=== PATIENT | female | born 1960 | race Two or more races ===

== ENCOUNTER 2020-10-05 07:51 | Outpatient (REF) | payer OTHER, SELFPAY ==
--- NOTE | 2020-10-05 | US_ITS ---
EXAMINATION: US ABDOMEN COMPLETE CLINICAL INFORMATION: Elevated liver enzymes. COMPARISON: None TECHNIQUE: Real-time imaging of the abdominal viscera. FINDINGS: PANCREAS: Normal. ABDOMINAL AORTA: The proximal, mid, and distal segments are normal in caliber. INFERIOR VENA CAVA: Visualized portions are normal. LIVER: There is diffuse attenuation of liver suggestive of focal fatty deposition with areas of focal fatty sparing adjacent to the gallbladder. No focal hepatic lesion. There is no intrahepatic biliary duct dilatation seen. GALLBLADDER: The gallbladder is physiologically distended. Multiple mobile gallstones are present with positive ABHIJEET sign. No evidence of gallbladder wall thickening or pericholecystic fluid. COMMON BILE DUCT: Normal in caliber measuring 0.3 cm in diameter. RIGHT KIDNEY: Normal. No hydronephrosis. No renal calculi or focal parenchymal lesions. The kidney measures 10.3 cm in maximum dimension. LEFT KIDNEY: Normal. No hydronephrosis. No renal calculi or focal parenchymal lesions. The kidney measures 11.0 cm in maximum dimension. SPLEEN: Normal. The spleen measures 9.0 cm in maximum dimension. FREE FLUID: None. US/US abdomen complete IMPRESSION: Cholelithiasis with positive ABHIJEET sign. No wall thickening. Diffuse hepatic steatosis with areas of focal fatty sparing. Rest of the abdominal ultrasound sound is unremarkable
== END 2020-10-05 07:52 | disposition home or self-care (01) ==
LOC: HO.US 07:51
PROVIDERS: Visit Provider Nurse Practitioner Family
DX: R94.5 Abnormal results of liver function studies (principal)
CPT/HCPCS: 76700

== ENCOUNTER → 2020-11-02 14:31 | Outpatient (BNVA) | payer OTHER, SELFPAY | PROVIDERS: PCP Internal Medicine; Visit Provider Surgery ==

== ENCOUNTER 2020-11-09 12:22 | Outpatient (REF) | payer OTHER, SELFPAY ==
[2020-11-10 07:17] LABS: COVID-19 Test Negative (Negative); IDNOW Serial# 55D5AD1C
== END 2020-11-09 12:23 | disposition home or self-care (01) ==
LOC: HO.EMPCOV 12:22
PROVIDERS: Visit Provider Internal Medicine
DX: Z20.822 Contact with and (suspected) exposure to COVID-19 (principal)
CPT/HCPCS: 36415; 87635; C9803

== ENCOUNTER 2020-12-17 13:24 | Outpatient (REF) | payer OTHER, SELFPAY ==
[2020-12-17 13:41] LABS: COVID-19 Test Positive (Negative); IDNOW Serial# 55D5AD1C
== END 2020-12-17 13:25 | disposition home or self-care (01) ==
LOC: HO.EMPCOV 13:24
PROVIDERS: Visit Provider Internal Medicine
DX: Z20.822 Contact with and (suspected) exposure to COVID-19 (principal)
CPT/HCPCS: 36415; 87635; C9803

== ENCOUNTER 2021-06-09 06:35 | Outpatient (REF) | payer OTHER, SELFPAY | END 2021-06-09 06:36 | disposition home or self-care (01) | LOC: HO.LAB 06:35 | PROVIDERS: PCP Internal Medicine; Visit Provider Internal Medicine | DX: Z20.822 Contact with and (suspected) exposure to COVID-19 (principal) | CPT/HCPCS: C9803; U0003; U0005 ==

== ENCOUNTER 2021-08-19 09:55 | Outpatient (REF) | payer OTHER, SELFPAY ==
--- NOTE | ~2021-08-19 | MM_ITS ---
EXAMINATION: MM SCREENING DIGITAL BREAST TOMOSYNTHESIS, BILATERAL CLINICAL INFORMATION: Screening. Asymptomatic. History benign left lumpectomy 2014 and left cyst aspiration 10/24/2019. The lifetime risk of breast cancer based on the Tyrer-Cuzick Model is 13%. COMPARISON: Mammography: 07/01/2020, 09/30/2019, 03/11/2019, 05/16/2018, outside mammography 05/10/2018; targeted left breast ultrasound 05/16/2018 TECHNIQUE: Digital breast tomosynthesis is performed in both the craniocaudal and mediolateral oblique views along with computer-aided detection (CAD). Synthesized 2D images are generated from the tomosynthesis. FINDINGS: The breasts are heterogeneously dense, which may obscure small masses (ACR BI-RADS breast composition Category c). There is no significant mass or architectural abnormality. No developing density or abnormal calcification. There is chronic smooth nodule anterior central 6:00 right breast under 1 cm. The axilla and skin contours are unremarkable. MM/MM tomosynthesis screening BI IMPRESSION: No mammographic evidence of malignancy. ASSESSMENT: BI-RADS 2: Benign RECOMMENDATION: Routine annual mammography screening. This patient's information was entered into a reminder system with a target due date for their next mammogram.
== END 2021-08-19 09:56 | disposition home or self-care (01) ==
LOC: HO.MAMMO 09:55
PROVIDERS: PCP Internal Medicine; Visit Provider Internal Medicine
DX: Z12.31 Encounter for screening mammogram for malignant neoplasm of breast (principal)
CPT/HCPCS: 77063; 77067

== ENCOUNTER 2021-09-02 06:17 | Outpatient (REF) | payer OTHER, SELFPAY ==
[2021-09-02 08:23] LABS: COVID-19 Test Negative (Negative)
== END 2021-09-02 06:18 | disposition home or self-care (01) ==
LOC: HO.LAB 06:17
PROVIDERS: Visit Provider Internal Medicine
DX: Z20.822 Contact with and (suspected) exposure to COVID-19 (principal)
CPT/HCPCS: 36415; 87635; C9803

== ENCOUNTER 2021-12-13 11:48 | Outpatient (REF) | payer OTHER, SELFPAY ==
[2021-12-25 17:17] LABS: HPV mRNA E6/E7 Not Detected (Not Detected)
== END 2021-12-13 11:49 | disposition home or self-care (01) ==
LOC: HO.LNP 11:48
PROVIDERS: Visit Provider Student in an Organized Health Care Education/Training Program
DX: Z12.4 Encounter for screening for malignant neoplasm of cervix (principal)
CPT/HCPCS: 87624; 88142

== ENCOUNTER 2021-12-15 13:53 | Outpatient (REF) | payer OTHER, SELFPAY ==
--- NOTE | ~2021-12-15 | MM_ITS ---
EXAMINATION: MM DIAGNOSTIC DIGITAL BREAST TOMOSYNTHESIS, LEFT US DIAGNOSTIC ULTRASOUND BREAST, LEFT CLINICAL INFORMATION: Routine clinical exam notes palpable area 7:00 left breast. No palpable area of concern noted by patient. No discharge. Prior history left aspiration 2020 outer quadrant and remote history outside benign left breast surgery 2014. The lifetime risk of breast cancer based on the Tyrer-Cuzick Model is 11%. COMPARISON: Mammography: 08/19/2021, 07/01/2020, 09/30/2019, 03/11/2019, 05/16/2018; ultrasound left breast 05/16/2018. TECHNIQUE: Digital breast tomosynthesis is performed in both the craniocaudal and mediolateral oblique views along with computer-aided detection (CAD). Synthesized 2D images are generated from the tomosynthesis. Ultrasound left breast is targeted to the inferior breast. Grayscale imaging and color Doppler are performed without and with harmonics. Patient does not palpate a focal area of concern to direct attention at time of imaging. FINDINGS: The breasts are heterogeneously dense, which may obscure small masses (ACR BI-RADS breast composition Category c). Parenchymal pattern is similar to prior studies and there is no developing density or interval mass or architectural abnormality. There is no parenchymal changes from prior studies in the lower breast in area of recent clinical palpable concern. No skin thickening or coarsening of the Jimmy's ligaments. Targeted ultrasound left breast shows no cystic or solid mass. No focal duct ectasia. No skin thickening or edema tracking in soft tissue planes. Results are discussed with the patient at time of visit. MM/MM tomosynthesis diagnostic LT IMPRESSION: No mammographic evidence of malignancy. Unremarkable targeted left breast ultrasound. ASSESSMENT: BI-RADS 1: Negative RECOMMENDATION: 1. Patient should be managed based on the clinical impression. If clinically indicated, further evaluation may be considered with surgical consult. Decision to proceed with biopsy should be based on clinical grounds and degree of clinical concern. 2. Otherwise, routine annual screening mammography. This patient's information was entered into a reminder system with a target due date for their next mammogram.
== END 2021-12-15 13:54 | disposition home or self-care (01) ==
LOC: HO.MAMMO 13:53
PROVIDERS: PCP Student in an Organized Health Care Education/Training Program; Visit Provider Student in an Organized Health Care Education/Training Program
DX: N63.24 Unspecified lump in the left breast, lower inner quadrant (principal)
CPT/HCPCS: 76642; 77061; 77065

== ENCOUNTER 2022-01-27 07:01 | Outpatient (REF) | payer OTHER, SELFPAY ==
[2022-01-27 09:11] LABS: COVID-19 Test Negative (Negative)
== END 2022-01-27 07:02 | disposition home or self-care (01) ==
LOC: HO.LAB 07:01
PROVIDERS: Visit Provider Internal Medicine
DX: Z20.822 Contact with and (suspected) exposure to COVID-19 (principal)
CPT/HCPCS: 87635; C9803

== ENCOUNTER 2022-05-06 08:28 | Outpatient (REF) | payer OTHER, SELFPAY ==
--- NOTE | ~2022-05-06 | XR_ITS ---
EXAMINATION: XR SHOULDER, RIGHT CLINICAL INFORMATION: Right shoulder sprain. COMPARISON: None TECHNIQUE: Three views of the right shoulder. FINDINGS: The right glenohumeral and acromio clavicular joints are intact. There is no acute fracture or dislocation. A small calcification is seen distally in the region of the rotator cuff. The visualized right ribs are intact. The soft tissues are unremarkable. XR/XR shoulder RT min 2V IMPRESSION: No significant degenerative joint changes. Probable small degenerative calcification distally in the rotator cuff.
== END 2022-05-06 08:29 | disposition home or self-care (01) ==
LOC: HO.HMGCX 08:28
PROVIDERS: PCP Internal Medicine; Visit Provider Internal Medicine
DX: S43.401A Unspecified sprain of right shoulder joint, initial encounter (principal)
CPT/HCPCS: 73030

== ENCOUNTER 2022-07-28 16:00 | Outpatient (RCR) | payer OTHER, SELFPAY ==
--- NOTE | 2022-05-16 17:29 | MHC.PT.EP ---
[facility] [place] Office [place] Office [place] Office [address] [phone] F: [phone] F: [phone] F: [phone] F: [phone] Physical Therapy Plan of Care Date of Evaluation: Date of Surgery: N/A Diagnosis: Unspecified sprain of right shoulder, initial encounter Assessment: Pt is a pleasant and motivated 61yo F who presents to PT with R shoulder pain for ~2.5 months with unclear RIC. She presents today with current impairments in pain, decreased R shoulder ROM, decreased strength, soft tissue restrictions, and impaired posture. She is limited functionally by lifting, reaching, overhead ADLs, getting dressed, and sleeping. She is an excellent candidate for skilled PT in order to address current impairments to facilitate return to PLOF. She will be seen 2x/week for 4 weeks and will be reassessed at that time. Frequency and Duration: The patient will be seen 2x/week for 4 weeks Short Term Goals: Pt will be I with HEP to promote self management of symptoms Pt will increase R shoulder flexion by at least 10 degrees Public Health Internship Goals: Pt will achieve full ROM and strength throughout R shoulder to assist with functional tasks Pt will perform overhead ADLs with minimal to no compensation Pt will demonstrate improvements in function as evidenced by statistically significant improvement in SPADI outcome measure Treatment Plan: Modalities to reduce pain, spasms and effusion. Manual therapy to restore motion and function. Therapeutic exercise to improve strength and flexibility. Neuromuscular re-education for posture and balance. Therapeutic activities to return to functional activities of daily living. Electronically signed by: Marta Lara, PT, DPT Please sign and return to therapist. Thank you for your referral.
--- NOTE | 2022-07-29 08:20 | MHC.PT.DC ---
[facility] [place] Office [place] Office [place] Office [address] [phone] F: [phone] F: [phone] F: [phone] F: [phone] Physical Therapy Discharge Report Diagnosis: Unspecified sprain of right shoulder, initial encounter Date of Surgery: N/A Date of Evaluation: 05/16/22 Date of Discharge: 07/29/22 Treatments to Date: 15 Cancellations to Date: No Shows to Date: Discharge Status: Achieved Goals Improved Function Independent with HEP Discharge Summary: Pt has made excellent progress since SOC. She has met her STGs and made excellent progress toward her LTGs. She has no pain in her R shoulder. She continues to have difficulty reaching behind her back but it has significantly improved. She has improved her score on SPADI outcome measure from 112/130 on initial PT evaluation to 9/130 at D/C. Pt is I with HEP. Pt is being D/C from skilled PT at this time. I recommend she consistently perform HEP for a few weeks and if she continues to have difficulty reaching behind her back to follow up with doctor. Pt reports no further questions or concerns for PT at this time. Electronically signed by: Marta Lara, PT, DPT Please sign and return to therapist. Thank you for your referral.
== END 2022-07-29 08:20 | disposition home or self-care (01) ==
LOC: HO.PT 16:00
PROVIDERS: Visit Provider Internal Medicine
DX: S43.401A Unspecified sprain of right shoulder joint, initial encounter (principal)
CPT/HCPCS: 97110; 97112; 97140; 97161

== ENCOUNTER 2022-08-27 09:30 | Outpatient (REF) | payer OTHER, SELFPAY ==
--- NOTE | ~2022-08-27 | MM_ITS ---
EXAMINATION: MM SCREENING DIGITAL BREAST TOMOSYNTHESIS, BILATERAL CLINICAL INFORMATION: Screening. Asymptomatic. The lifetime risk of breast cancer based on the Tyrer-Cuzick Model is 4%. COMPARISON: Mammography: 12/15/2021, 08/19/2021, 07/01/2020, 09/30/2019, 03/11/2019; left breast ultrasound 09/30/2019, left cyst aspiration 10/24/2019. TECHNIQUE: Digital breast tomosynthesis is performed in both the craniocaudal and mediolateral oblique views along with computer-aided detection (CAD). Synthesized 2D images are generated from the tomosynthesis. FINDINGS: The breasts are heterogeneously dense, which may obscure small masses (ACR BI-RADS breast composition Category c). No significant mass. No architectural abnormality or abnormal calcifications. Parenchymal pattern is similar to prior studies. The axilla and skin contours are unremarkable. MM/MM tomosynthesis screening BI IMPRESSION: No mammographic evidence of malignancy. ASSESSMENT: BI-RADS 1: Negative RECOMMENDATION: Routine annual mammography screening. This patient's information was entered into a reminder system with a target due date for their next mammogram.
== END 2022-08-27 09:31 | disposition home or self-care (01) ==
LOC: HO.MAMMO 09:30
PROVIDERS: PCP Internal Medicine; Visit Provider Internal Medicine
DX: Z12.31 Encounter for screening mammogram for malignant neoplasm of breast (principal)
CPT/HCPCS: 77063; 77067

== ENCOUNTER 2022-11-10 07:11 | Outpatient (REF) | payer OTHER, SELFPAY ==
[2022-11-10 07:10] LABS: MANUAL DIFF FLAG NO
[2022-11-10 07:43] LABS: Basophils Percent Auto 0.6 % (0-2); Eosinophils Absolute Auto 0.1 X10*3/uL (0.0-0.4); Eosinophils Percent Auto 2.7 % (0-4); Hematocrit 41.4 % (37.0-47.0); Hemoglobin 13.6 g/dl (12.0-16.0); Imm Gran Abs Auto 0.01 X10*3/uL (0.00-0.03); Imm Gran Pct Auto 0.2 % (0.0-0.4); Lymphocytes Absolute Auto 2.3 X10*3/uL (1.2-4.9); Lymphocytes Percent Auto 44.3 % (20-40); Mean Corpuscular HGB Conc 32.9 g/dl (31.0-35.0); Mean Corpuscular Hemoglobin 27.3 pg (27.0-33.0); Mean Corpuscular Volume 83.1 fL (80.0-98.0); Mean Platelet Volume 10.9 fL (9.4-12.3); Monocytes Absolute Auto 0.5 X10*3/uL (0.1-1.2); Monocytes Percent Auto 9.2 % (2-11); Neutrophils Absolute Auto 2.2 x10*3/uL (2.0-8.3); Platelet Count 265 X10*3/uL (160-400); Red Blood Count 4.98 X10*6/uL (4.20-5.50); Red Cell Distribution Width 12.8 % (11.0-16.0); White Blood Count 5.1 X10*3/uL (4.8-10.8)
[2022-11-10 08:51] LABS: Alanine Aminotransferase 92 U/L (0-31); Albumin Level 4.3 g/dL (3.5-5.0); Alkaline Phosphatase 86 U/L (39-117); Anion Gap 18 (12-20); Aspartate Amino Transferase 47 U/L (5-31); Bilirubin Total 0.7 mg/dL (0.0-1.0); Blood Urea Nitrogen 17 mg/dL (9-16); Carbon Dioxide 22 mmol/L (22-29); Chloride 106 mmol/L (96-108); Cholesterol 231 mg/dL; Estimated Glomerular Filt Rate > 60; Glucose Fasting 114 mg/dL (60-99); HDL Cholesterol 39 mg/dL; LDL Cholesterol Calculated 164 mg/dl; Potassium 4.5 mmol/L (3.3-5.1); Sodium 141 mmol/L (135-145); TSH reflex Free T4 2.06 uIU/mL (0.32-4.0); Total Protein 7.4 g/dL (6.5-8.0); Triglycerides 143 mg/dL; Vitamin D 25-OH Total 35.2 ng/mL (>30)
[2022-11-10 09:14] LABS: Calcium 9.6 mg/dL (8.4-10.2)
== END 2022-11-10 07:12 | disposition home or self-care (01) ==
LOC: HO.LAB 07:11
PROVIDERS: PCP Internal Medicine; Visit Provider Internal Medicine
DX: Z00.01 Encounter for general adult medical examination with abnormal findings (principal); K80.20 Calculus of gallbladder without cholecystitis without obstruction; N95.9 Unspecified menopausal and perimenopausal disorder
CPT/HCPCS: 36415; 80053; 80061; 82306; 84443; 85025

== ENCOUNTER 2023-10-07 10:33 | Outpatient (REF) | payer OTHER, SELFPAY | END 2023-10-07 10:34 | disposition home or self-care (01) | LOC: HO.MAMMO 10:33 | PROVIDERS: PCP Internal Medicine; Visit Provider Internal Medicine | DX: Z12.31 Encounter for screening mammogram for malignant neoplasm of breast (principal) | CPT/HCPCS: 77063; 77067 ==

== ENCOUNTER → 2023-10-07 10:45 | Outpatient (BNV) | payer OTHER, SELFPAY | PROVIDERS: PCP Internal Medicine; Visit Provider Radiology Diagnostic Radiology | DX: Z12.31 Encounter for screening mammogram for malignant neoplasm of breast (principal) | CPT/HCPCS: 77063; 77067 ==

== ENCOUNTER 2023-11-02 07:51 | Outpatient (AMB) | payer OTHER, SELFPAY ==
--- NOTE | 2023-11-02 07:53 | MHC.PC.OV ---
Vital Signs 11/02/23 07:58 Height 5 ft 2 in Weight 161 lb BMI 29.4 BP 112/78 Blood Pressure Location Rt brachial Position Sitting Pulse 80 Pulse Source Pulse Oximeter Pulse Oximetry (%) 98 Oxygen Delivery Method Room Air Intake Visit Reasons: Annual PE Intake Note: Pt is here today for her PE: Last mammogram 10/07/23: papsmear 12/24/21: colonoscopy 10/24/16 Allergies Dust Allergy (Intermediate, Uncoded 11/02/23 08:20) Unknown Medication List - Last Reconciled 11/02/23 by Clover Morales MD biotin mcg PO multivit with min-folic acid 200 mcg (Adult Multivitamin Gummies) tabs PO Tobacco use date assessed: 11/02/23 Dental Screening Dental Screen Date: 11/02/23 Did you have a dental visit in the last 12 months?: Yes Did you have a dental problem in the last 6 months where you did not have access to dental care?: Yes Was dental information given to patient?: Patient has dentist HPI Annual PE HPI Details 62-year-old lady here today for her physical exam. She is currently up-to-date with her screening mammogram, done earlier this year, last Pap was done in 2021 and her last colonoscopy was done at [facility] in 2016 which was normal per patient. She has history of gallstones, currently asymptomatic. She was seen by Dr. Ramos in the past and it was left up to the patient whether she wants to do the surgery now or wait She has impaired fasting glucose and hyperlipidemia on fasting labs done last year. Patient states that she has not really been compliant with the low-cholesterol diet but states that she does walk at least an hour every day during her lunch. Complains of intermittent episode of aching pain on right forearm. She is right-handed and is doing a lot of computer work. Does not take any medication for this. Complains of slight scratchiness in the throat on the right side. Denies any accompanying fever no odynophagia, no generalized body aches, no shortness of breath or cough She has had COVID vaccines in the past but does not want to get the booster, nor does she want to get a flu shot. Up-to-date with her ap. [facility] Medical History (Updated 11/02/23 @ 08:36 by Clover Morales MD) Impaired fasting glucose Hyperlipidemia Gallstones Surgical History History of breast lump/mass excision History of section Family History Mother History of breast cancer History of cervical cancer, Onset Age: 59 Father History of cancer of unknown primary site Maternal Grandmother History of breast cancer, Onset Age: 70 Social History Housing: House Alcohol intake: never Patient Tobacco Use Status: Never used Tobacco e-Cigarette/Vaping Use: Never Used service: No Current occupational status: employed Cognitive needs: No Hearing needs: No Vision needs: Yes Questionnaire PHQ-9 Over the last 2 weeks, how often have you been bothered by any of the following problems? 1. Little interest or pleasure in doing things: not at all 2. Feeling down, depressed, or hopeless: not at all 3. Trouble falling or staying asleep, or sleeping too much: not at all 4. Feeling tired or having little energy: not at all 5. Poor appetite or overeating: not at all 6. Feeling bad about yourself - or that you are a failure or have let yourself or your family down: not at all 7. Trouble concentrating on things, such as reading the newspaper or watching television: not at all 8. Moving or speaking so slowly that other people could have noticed. Or the opposite - being so fidgety or restless that you have been moving around a lot more than usual: not at all 9. Thoughts that you would be better off or of hurting yourself in some way: not at all Total score: 0 Depression Screening Interpretation: Negative Depression Screening Done: Yes 40523 - PHQ-9 Billing: Yes Source: Developed by Drs. Claudio Irene, Mary Melendez, Timothy Swain and colleagues, with an educational ganga from [employer]. Thrive Questionnaire Date Thrive assessed: 11/02/23 I am a: Patient What is your living situation today?: I have a steady place to live Within the past 12 months, did the food you bought not last and you didn't have the money to get more?: Never true Within the past 12 months, did you worry whether your food would run out before you got money to buy more?: Never true Do you have trouble paying for medicines?: No Do you have trouble getting transportation to medical appointments?: No Do you have trouble paying your heating and electricity bill?: No Do you have trouble taking care of your child, family member or friend?: No Do you have trouble with day-to-day activities such as bathing, preparing meals, shopping, managing finances, etc.?: No Are you currently unemployed and looking for a job?: No Are you interested in more education?: No THRIVE Score: 0 AUDIT C Alcohol Use Questionnaire (AUDIT-C) 1. How often do you have a drink containing alcohol?: Never Total Score: 0 STEVEN-7 AMB Questionnaire STEVEN-7 Date STEVEN - 7 assessed: 11/02/23 Feeling nervous, anxious, or on edge: 0 = Not at all Not being able to stop or control worryin = Several days Worrying too much about different things: 1 = Several days Trouble relaxin = Not at all Being so restless that it is hard to sit still: 0 = Not at all Becoming easily annoyed or irritable: 1 = Several days Feeling afraid as if something awful might happen: 0 = Not at all Total STEVEN-7 score (0-4 normal; 5-9 mild; 10-14 moderate; 15-21 severe): 3 Source: Developed by Drs. Claudio Irene, Mary Melendez, Timothy Swain and colleagues, with an educational ganga from [employer]. STEVEN-7 Assessment Billing STEVEN-7 Assessment Tool: STEVEN-7 Assessment 41109 Review of Systems Const Denies chills, Denies difficulty sleeping, Denies fatigue, Denies fever(s), Denies headache(s) and Denies lethargy Eyes Details: She goes to [employer], has corrective lenses but never wears them, claims that she sees well Denies change in vision ENT Reports as per HPI, Denies vertigo, Denies dizziness, Denies headache(s), Denies nasal congestion, Denies nasal discharge, Denies post nasal drip and Denies sinus pain Card Denies chest pain, Denies dyspnea and Denies dyspnea on exertion Resp Denies cough, Denies dyspnea and Denies dyspnea on exertion GI Denies abdominal pain, Denies melena, Denies hematochezia, Denies change in bowel habits and Denies heartburn Denies hematuria, Denies difficulty voiding, Denies nocturia, Denies genital lesions and Denies urinary incontinence Musc Reports as per HPI, Denies back pain and Denies limited range of motion Skin/Breast Details: Has been seen by Dr. Perez Denies breast skin changes, Denies breast pain, Denies breast mass, Denies lesions and Denies rash Neuro Denies vertigo, Denies dizziness, Denies headache(s), Denies focal weakness and Denies convulsions Psych Reports no additional complaints, Denies depression and Denies mood swings Endo Reports no additional complaints and Denies fatigue Pito/Lymph Reports no additional complaints Aller/Immun Reports no additional complaints Physical exam (Primary Care) Vital Signs: Last Vital Signs Pulse 80 11/02/23 07:58 BP 112/78 11/02/23 07:58 Pulse Ox 98 11/02/23 07:58 Oxygen Delivery Method Room Air 11/02/23 07:58 BMI result Body Mass Index 29.4 Tobacco/Smoking Status: Tobacco use Status Tobacco use date assessed 11/02/23 11/02/23 08:02 Patient Tobacco Use Status Never used Tobacco 11/02/23 08:02 e-Cigarette/Vaping Use Never Used 11/02/23 08:02 Depression Screening Interpretation: Negative Thrive Assessment: Date of Thrive Assessment Date Thrive assessed 10/27/22 11/02/23 08:02 Const General: cooperative, no acute distress, alert, awake and Physically active Nutritional Appearance: overweight Orientation/consciousness: patient oriented x3 HENMT Head: Yes normocephalic Ears: hearing grossly normal bilaterally, TM's normal bilaterally and EAC's normal General nose exam: Normal external nose present and No nasal discharge present Face and sinus: Yes face symmetric Mouth: Normal oral and palatal mucosa present, tongue normal, oropharynx normal and moist mucous membranes Throat: Yes posterior oropharynx normal Eyes General: appearance normal, both eyes and all related structures Neck Neck: Yes full ROM, Yes no lymphadenopathy and Yes supple Thyroid: Thyroid normal Chest Chest palpation & inspection: normal inspection of the chest Breast/axilla palpation: normal palpation of the breasts Resp Effort & Inspection: normal respiratory effort and able to speak in complete sentences Auscultation: clear to auscultation bilaterally Cardio Jugular venous distension: no JVD Rate: regular rate Rhythm: regular rhythm Heart sounds: S1 normal heart sound present and S2 normal heart sound present GI Palpation (GI): Soft to palpation, nontender, no guarding, no hernias and no masses Auscultation: normal bowel sounds General: Yes no CVA tenderness Back/Spine/Pelvis Back: no CVA tenderness and No back tenderness Cervical Spine: normal cervical lordosis and cervical ROM normal Thoracic/Lumbar Spine: thoraco-lumbar ROM normal Skin Other: Scattered hyperpigmented macules on trunk Neuro General: patient oriented x3, gait normal, tone normal, moves all extremities and no focal motor deficits Gait exam (Neuro): Normal gait present Extrem General: Yes full ROM, Yes no joint enlargement, Yes no clubbing, cyanosis or edema, Yes no calf tenderness and Yes normal gait Psych Appearance: grossly normal and well kempt Mental Status: mental status grossly normal Speech and movement: Normal speech and movement present Affect: normal affect Attitude: cooperative Thought process: Normal thought process present Thought content: Normal thought content present Assessment and Plan Assessment & Plan (1) Annual visit for general adult medical examination with abnormal findings: Code(s): Z00.01 - Encounter for general adult medical examination with abnormal findings Plan: Will check appropriate labs. Being could continue with regular dental visit every 6 months and regular eye exams, at least every 2 years. She goes to [facility] ers Take adequate calcium in diet and vitamin-D 3 at 2000 IU per cap once a day, in addition to weight-bearing exercises to help maintain good muscle tone and weight control. Instructed to do self-breast exam, and continue with yearly mammogram. Up to Date with her cervical cancer screening. She had a screening colonoscopy done at [facility] in 2017, normal per patient to again in 2026. Has had COVID vaccinations in the past but does not want to get the booster nor does she want to get a flu vaccine, up-to-date with Tdap. Recommended to get shingles vaccine (2) Gallstones: Code(s): K80.20 - Calculus of gallbladder without cholecystitis without obstruction Plan: Currently asymptomatic, has already been seen by surgery who she states left it up to her to decide whether to get elective cholecystectomy. Advised to go on a low-cholesterol diet. (3) Impaired fasting glucose: Code(s): R73.01 - Impaired fasting glucose Plan: Your fasting blood sugars elevated above 100 mg/dL. Impaired glucose metabolism O2 at risk for developing diabetes mellitus type 2, as well as heart attack and stroke later on. Lifestyle changes at just weight loss, healthy eating habits, and regular exercise are important, and can prevent the progression to diabetes (4) Hyperlipidemia: Code(s): E78.5 - Hyperlipidemia, unspecified Plan: Reviewed lab fasting lipid profile with patient which showed elevated LDL cholesterol. Repeat fasting lipid panel ordered stressed importance of adherence to low-cholesterol diet and regular exercise, at least 30 minutes 3 to 4 times a week. Advised patient to make healthy food choices, eat more fruits, vegetables, whole grains, wild caught fish and low-fat dairy. Limit amount of meat and fried or fatty food products, as well as processed foods and fast foods. Orders: Orders Comprehensive [place]. Panel Fast Today E78.5 - Hyperlipidemia, unspecified, K80.20 - Calculus of gallbladder without cholecystitis without obstruction, R73.01 - Impaired fasting glucose, Z00.01 - Encounter for general adult medical examination with abnormal findings Hemoglobin A1c Today E78.5 - Hyperlipidemia, unspecified, K80.20 - Calculus of gallbladder without cholecystitis without obstruction, R73.01 - Impaired fasting glucose, Z00.01 - Encounter for general adult medical examination with abnormal findings Lipid Panel Today E78.5 - Hyperlipidemia, unspecified, K80.20 - Calculus of gallbladder without cholecystitis without obstruction, R73.01 - Impaired fasting glucose, Z00.01 - Encounter for general adult medical examination with abnormal findings Vitamin D 25-OH Total Today E78.5 - Hyperlipidemia, unspecified, K80.20 - Calculus of gallbladder without cholecystitis without obstruction, R73.01 - Impaired fasting glucose, Z00.01 - Encounter for general adult medical examination with abnormal findings Review Flu Vaccine not done: patient reason (Patient declined) Coding Level of Care Code Est Pt Prev Care 40-64y(97635) Diagnoses Annual visit for general adult medical examination with abnormal findings Z00.01 Gallstones K80.20 Impaired fasting glucose R73.01 Hyperlipidemia E78.5 Additional Codes STEVEN-7 Assessment Billing - STEVEN-7 Assessment Tool: STEVEN-7 Assessment 13911 ([id number])
[2023-11-02 07:58] VITALS: BP 112/78; PULSE 80; O2SAT 98; BMI 29.4
== END 2023-11-02 08:38 | disposition home or self-care (01) ==
PROVIDERS: Visit Provider Internal Medicine
DX: Z00.00 Encounter for general adult medical examination without abnormal findings (principal); K80.20 Calculus of gallbladder without cholecystitis without obstruction; R73.01 Impaired fasting glucose; E78.5 Hyperlipidemia, unspecified
CPT/HCPCS: 99396

== ENCOUNTER 2023-11-02 08:40 | Outpatient (REF) | payer OTHER, SELFPAY ==
[2023-11-02 11:48] LABS: Estimated Average Glucose 137 mg/dL; Hemoglobin A1c % 6.4 % (<6.0)
[2023-11-02 12:14] LABS: Alanine Aminotransferase 145 U/L (0-31); Albumin Level 4.1 g/dL (3.5-5.0); Alkaline Phosphatase 82 U/L (39-117); Anion Gap 13 (12-20); Aspartate Amino Transferase 83 U/L (5-31); Bilirubin Total 0.6 mg/dL (0.0-1.0); Blood Urea Nitrogen 12 mg/dL (9-16); Calcium 9.9 mg/dL (8.4-10.2); Carbon Dioxide 28 mmol/L (22-29); Chloride 105 mmol/L (96-108); Cholesterol 221 mg/dL (<200); Estimated Glomerular Filt Rate > 60; Glucose Fasting 109 mg/dL (60-99); HDL Cholesterol 41 mg/dL (>40); LDL Cholesterol Calculated 156 mg/dL (<100); Potassium 3.9 mmol/L (3.3-5.1); Sodium 142 mmol/L (135-145); Total Protein 7.7 g/dL (6.5-8.0); Triglycerides 123 mg/dL (<150)
[2023-11-02 12:35] LABS: Vitamin D 25-OH Total 40.1 ng/mL (>30)
== END 2023-11-02 08:41 | disposition home or self-care (01) ==
LOC: HO.HMGCLDS 08:40
PROVIDERS: PCP Internal Medicine; Visit Provider Internal Medicine
DX: Z00.01 Encounter for general adult medical examination with abnormal findings (principal); K80.20 Calculus of gallbladder without cholecystitis without obstruction; R73.01 Impaired fasting glucose; E78.5 Hyperlipidemia, unspecified
CPT/HCPCS: 36415; 80053; 80061; 82306; 83036

== ENCOUNTER 2023-11-29 09:03 | Outpatient (AMB) | payer OTHER, SELFPAY ==
[2023-11-29 09:26] VITALS: BP 112/78; PULSE 96; TEMP 36.4; O2SAT 97; BMI 29.4
--- NOTE | 2023-11-29 09:26 | MHC.OFFWIV ---
Intake Vital Signs 11/29/23 09:26 Height 5 ft 2 in Weight 161 lb BMI 29.4 BP 112/78 Pulse 96 Pulse Source Pulse Oximeter Temp 97.6 F Temp Source Temporal Artery Scan Pulse Oximetry (%) 97 Oxygen Delivery Method Room Air Intake Visit Reasons: EST/sore throat(lobby masked) Intake Note: pt is here today for sore throat started Patient Tobacco Use Status: Never used Tobacco Allergies Dust Allergy (Intermediate, Uncoded 11/02/23 08:20) Unknown Do you need a note to return to daycare/school/sports/work: No HPI HPI Comments History of Present Illness Details 62 y/o female patient who presents to walk in clinic with c/o sore throat. Pt reports that she was seen in Oct and was positive for Strept then. She was given Amoxicillin x 10 days. [facility] Medical History (Updated 11/02/23 @ 08:36 by Clover Morales MD) Impaired fasting glucose Hyperlipidemia Gallstones Surgical History History of breast lump/mass excision History of section Family History Mother History of breast cancer History of cervical cancer, Onset Age: 59 Father History of cancer of unknown primary site Maternal Grandmother History of breast cancer, Onset Age: 70 Social History Housing: House Alcohol intake: never Patient Tobacco Use Status: Never used Tobacco e-Cigarette/Vaping Use: Never Used service: No Current occupational status: employed Cognitive needs: No Hearing needs: No Vision needs: Yes Review of Systems Const All systems reviewed & are unremarkable except as noted in HPI and below Physical Exam Vital Signs: Last Vital Signs Temp 97.6 F 11/29/23 09:26 Pulse 96 11/29/23 09:26 BP 112/78 11/29/23 09:26 Pulse Ox 97 11/29/23 09:26 Oxygen Delivery Method Room Air 11/29/23 09:26 BMI result Body Mass Index 29.4 Const General: comfortable and no acute distress HEENT Head: Yes normocephalic Ears: external ears normal and TM's normal bilaterally General nose exam: Abnormal mucous membranes and turbinates present boggy and erythematous Face and sinus: Yes sinuses nontender Mouth: moist mucous membranes and Abnormal oral and palatal mucosa present erythematous and white patches Throat: Yes uvula midline Resp Effort & Inspection: normal respiratory effort and able to speak in complete sentences Auscultation: clear to auscultation bilaterally, no crackles, no rales, no rhonchi and no wheezes Cardio Rate: regular rate Rhythm: regular rhythm Results AMB Rapid Strep AMB Rapid Strep Positive Last Edit by SALOME Kumar on 11/29/23 09:54 Results Reviewed Results Reviewed: Laboratory Last Values Strep Scn Rapid Clinic Positive 11/29/23 09:53 Assessment & Plan Assessment & Plan (1) Acute streptococcal pharyngitis: Code(s): J02.0 - Streptococcal pharyngitis Plan: - Rest - Warm fluids with honey Orders: Orders AMB Rapid Strep Screen Today Z13.9 - Encounter for screening, unspecified Throat Culture Today J02.0 - Streptococcal pharyngitis Medications: New cephalexin 500 mg PO BID 10 days 20 caps 0RF J02.0 - Streptococcal pharyngitis Coding Level of Care Code Est Pt Level 3 (37672) Diagnoses Acute streptococcal pharyngitis J02.0 Time Spent (min) 15
== END 2023-11-29 10:21 | disposition home or self-care (01) ==
PROVIDERS: PCP Internal Medicine; Visit Provider Nurse Practitioner Family
DX: J02.9 Acute pharyngitis, unspecified (principal); J02.0 Streptococcal pharyngitis
CPT/HCPCS: 87880; 99213

== ENCOUNTER 2023-11-29 09:59 | Outpatient (REF) | payer OTHER, SELFPAY | END 2023-11-29 10:00 | disposition home or self-care (01) | LOC: HO.LAB 09:59 | PROVIDERS: Visit Provider Nurse Practitioner Family | DX: J02.0 Streptococcal pharyngitis (principal) | CPT/HCPCS: 87070; 87147 ==

== ENCOUNTER → 2024-05-30 09:53 | Outpatient (BNVA) | payer OTHER, SELFPAY | PROVIDERS: PCP Internal Medicine; Visit Provider Physician Assistant Medical | DX: Z13.89 Encounter for screening for other disorder (principal) | CPT/HCPCS: 99203 ==

== ENCOUNTER 2024-09-05 08:26 | Outpatient (REF) | payer OTHER, SELFPAY ==
[2024-09-06 11:46] LABS: HPV 16,18/45 See PAP report
== END 2024-09-05 08:27 | disposition home or self-care (01) ==
LOC: HO.LNP 08:26
PROVIDERS: PCP Internal Medicine; Visit Provider Advanced Practice Midwife
DX: Z01.419 Encounter for gynecological examination (general) (routine) without abnormal findings (principal); Z80.3 Family history of malignant neoplasm of breast
CPT/HCPCS: 87624; 88175

== ENCOUNTER 2024-10-09 07:24 | Outpatient (REF) | payer OTHER, SELFPAY | END 2024-10-09 07:25 | disposition home or self-care (01) | LOC: HO.LNP 07:24 | PROVIDERS: PCP Internal Medicine; Visit Provider Obstetrics & Gynecology | DX: N89.8 Other specified noninflammatory disorders of vagina (principal) | CPT/HCPCS: 56605; 88305 ==

== ENCOUNTER 2024-10-09 07:24 | Outpatient (AMB) | payer OTHER, SELFPAY ==
[2024-10-09 07:27] VITALS: BP 120/68
--- NOTE | 2024-10-09 07:27 | MHC.OFFVIS ---
Vital Signs 10/09/24 07:27 Height 5 ft 2 in Weight 164 lb BMI 30.0 BP 120/68 Intake Visit Reasons: Vaginal lesion Consult Deflash And Wash Operator Required: No Information Interpreted: non-clinical & clinical Laboratory Tester: Laboratory Tester Present (Orly WOLF) Accompanied by: Self / Same As Patient Allergies Dust Allergy (Intermediate, Uncoded 10/09/24 07:30) Unknown Post menopausal: Yes HPI Comments Details: Presenting referred from Judy Flores CNM regarding vaginal lesion identified on routine vaginal exam. No vaginal irritation or pain , no vaginal bleeding or discharge. Last co testing was in 09/24 was negative, preceded by co testing in 12/21 which was negative Last mammogram was in 10/25 was BI-RADS 1 [facility] Medical History FH: breast cancer in first degree relative History of abnormal cervical Pap smear Impaired fasting glucose Hyperlipidemia Gallstones Surgical History History of breast lump/mass excision History of section Family History Mother History of breast cancer History of cervical cancer, Onset Age: 59 Ovarian cancer Father History of cancer of unknown primary site Maternal Grandmother History of breast cancer, Onset Age: 70 Social History Housing: House Alcohol intake: never Patient Tobacco Use Status: Never used Tobacco e-Cigarette/Vaping Use: Never Used service: No Current occupational status: employed Cognitive needs: No Hearing needs: No Vision needs: Yes Review of Systems Const All systems reviewed & are unremarkable except as noted in HPI and below Physical Exam Vital Signs: Last Vital Signs BP 120/68 10/09/24 07:27 BMI result Body Mass Index 30.0 General: Yes no CVA tenderness External Female Exam: normal external appearance, normal appearance of the urethra and other (Left labia majora 0.5 cm dark lesion) Speculum Exam - Vagina: normal appearance of the vagina, normal palpation, no lesions, no masses and other (Left Posterior vaginal wall red lesion 05:00 o'clock) Speculum Exam - Cervix: normal appearance of the cervix, normal palpation, no lesions, no masses and nontender Bimanual exam- vagina & uterus: normal bimanual exam, normal palpation, uterine size normal, normal palpation, uterine shape normal, No Cervical tenderness present and non-tender Bimanual Exam- Adnexa, other: normal adnexae Back/Spine/Pelvis Back: no CVA tenderness Office 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 Preop dx: Left posterior vaginal wall lesion@ 5 o'clock Op: Left posterior vaginal wall lesion@ 5 o'clock biopsy Post op: Same Anesthesia: Lidocaine 1% 3cc used Procedure: Using betadine the area was scrubbed and draped in the usual manner ; using punch biopsy forceps, the Left posterior vaginal wall lesion@ 5 o'clock was biopsy. Pressure and Monsel's solution was used for hemostasis. The patient tolerated the procedure well. Discharge Instructions: The patient was instructed to schedule an appointment in 2 weeks for follow-up and to call if temp>100.4, area of the biopsy redness or pain, nausea/vomiting. This note was generated with a voice recognition program. Some errors may have been overlooked during the review of this note. Sometimes these errors may affect the content or meaning of a given sentence. 71779-Wxjjyc of Vulva/Perineum Procedure code (CPT) selection complete Assessment & Plan Assessment & Plan (1) Vulvar lesion: Comment: Left labia majora 0.5 cm Code(s): N90.89 - Other specified noninflammatory disorders of vulva and perineum Category: Medical Plan: Discussed with the patient the finding on pelvic exam showing left labia majora 0.5 cm dark lesion, the patient stated that that the lesion was excised few years ago and recurred recently, recommended excisional biopsy of left labia majora lesion. Instructions given the patient to schedule an appointment within 2 weeks. All questions answered, the patient verbalized understanding (2) Vaginal lesion: Comment: Left vaginal wall 05:00 o'clock Code(s): N89.8 - Other specified noninflammatory disorders of vagina Category: Medical Plan: Discussed with the patient the finding on pelvic exam showing a left posterior vaginal wall reddish lesion possible granulation tissue, recommended biopsy, biopsy done, see procedure note. Orders: Orders AMB DIRECTOR OF LOGISTICS Biopsy Today N89.8 - Other specified noninflammatory disorders of vagina Coding Level of Care Code Est Pt Level 3 (97115) Procedure Only Diagnoses Vulvar lesion N90.89 Vaginal lesion N89.8 CPT Codes DIRECTOR OF LOGISTICS Biopsy - CPT: 48820-Uddnwo of Vulva/Perineum ([id number])
== END 2024-10-09 07:56 | disposition home or self-care (01) ==
LOC: HO.HWS 07:24
PROVIDERS: PCP Internal Medicine; Visit Provider Obstetrics & Gynecology
DX: N90.89 Other specified noninflammatory disorders of vulva and perineum (principal); N89.8 Other specified noninflammatory disorders of vagina
CPT/HCPCS: 56605; 99213

== ENCOUNTER 2024-10-12 10:40 | Outpatient (REF) | payer OTHER, SELFPAY | END 2024-10-12 10:41 | disposition home or self-care (01) | LOC: HO.MAMMO 10:40 | PROVIDERS: PCP Internal Medicine; Visit Provider Internal Medicine | DX: Z12.31 Encounter for screening mammogram for malignant neoplasm of breast (principal) | CPT/HCPCS: 77063; 77067 ==

== ENCOUNTER → 2024-10-12 10:45 | Outpatient (BNV) | payer OTHER, SELFPAY | PROVIDERS: PCP Internal Medicine; Visit Provider Internal Medicine | DX: Z12.31 Encounter for screening mammogram for malignant neoplasm of breast (principal) | CPT/HCPCS: 77063; 77067 ==

== ENCOUNTER 2024-10-24 13:25 | Outpatient (AMB) | payer OTHER, SELFPAY ==
--- NOTE | 2024-10-24 13:33 | A.OFFVIS_ITS ---
Vital Signs 10/24/24 13:43 Height 5 ft 2 in Weight 166 lb 2 oz BMI 30.4 BP 155/77 H Blood Pressure Location Lt brachial Position Sitting Pulse 76 Intake Visit Reasons: Genetic Testing Intake Note: Patient is seen in office for family history of malignant neoplasm of the breast. Pt c/o: few wks ago had mm and was instructed to come back to retake, left breast always dense, no lump, bump, redness, discharge, infections, left breast lumpectomy in the past benign , age 21 yrs ref. Judy Flores mm:10/12/24 Principal Account Clerk Required: No Grain Elevator Superintendent: Grain Elevator Superintendent Present Accompanied by: Self / Same As Patient Allergies Dust Allergy (Intermediate, Uncoded 10/24/24 13:41) Unknown Medication List - Last Reconciled 10/24/24 by Pravin Mccabe MD biotin mcg PO multivit with min-folic acid 200 mcg (Adult Multivitamin Gummies) tabs PO HPI Comments Details: 63-year-old female patient presenting with a strong family history of breast cancer to discuss genetic testing. She reports a prior history of breast lumpectomy which was benign. She denies any current breast pain, breast lumps, skin changes, nipple discharge or enlarged lymph nodes. Her family history is significant for her mother having breast cancer at the age of 59 and her maternal grandmother having history of breast cancer as well as cervical cancer/vaginal cancer and ultimately succumbed from the disease. Her menarche was at the age of 15. She is 1 para 1 and had her child when she was 21 years old. She is postmenopausal, last period at the age of 44. She denied hormone replacement. She has never undergone genetic testing. Her sister underwent genetic testing was negative. [facility] Medical History FH: breast cancer in first degree relative History of abnormal cervical Pap smear Impaired fasting glucose Hyperlipidemia Gallstones Surgical History History of breast lump/mass excision History of section Family History Mother History of breast cancer History of cervical cancer, Onset Age: 59 Ovarian cancer Father History of cancer of unknown primary site Maternal Grandmother History of breast cancer, Onset Age: 70 Social History Housing: House Alcohol intake: never Patient Tobacco Use Status: Never used Tobacco e-Cigarette/Vaping Use: Never Used service: No Current occupational status: employed Cognitive needs: No Hearing needs: No Vision needs: Yes Female Reproductive History Menstrual Age of Menarche: 15 control method: progesterone injection Age of menopause: 44 Total pregnancies: 1 Number of Living Children: 1 Review of Systems Const All systems reviewed & are unremarkable except as noted in HPI and below Physical Exam Vital Signs: Last Vital Signs Pulse 76 10/24/24 13:43 BP 155/77 H 10/24/24 13:43 BMI result Body Mass Index 30.4 Const General: cooperative and no acute distress Nutritional Appearance: well nourished Orientation/consciousness: patient oriented x3 Limitations: no limitations HEENT Head: Yes normocephalic and Yes atraumatic Ears: hearing grossly normal bilaterally Chest Other: Breast exam deferred Resp Effort & Inspection: normal respiratory effort, no audible wheezes, no cough and no respiratory distress Cardio Jugular venous distension: no JVD GI Inspection: Yes normal to inspection Skin Other: Warm, dry, no rash Neuro General: patient oriented x3 Extrem General: Yes no clubbing, cyanosis or edema Assessment & Plan Assessment & Plan (1) Family history of breast cancer in first degree relative: Code(s): Z80.3 - Family history of malignant neoplasm of breast Category: Medical (2) At high risk for breast cancer: Code(s): Z91.89 - Other specified personal risk factors, not elsewhere classified Category: Medical Plan 63-year-old female patient with a strong family history of breast cancer presenting for possible genetic testing. I reviewed the process for genetic testing along with the relative risks and benefits. She wishes to proceed with the genetic testing which was performed today. She will return in 6 weeks to review the results and discuss her screening options. Calculated Tyrer-Cuzick remaining lifetime risk of breast cancer 17%. Coding Level of Care Code New Pt Level 4 (36126) Diagnoses Family history of breast cancer in first degree relative Z80.3 At high risk for breast cancer Z91.89
[2024-10-24 13:43] VITALS: BP 155/77; PULSE 76; BMI 30.4
== END 2024-10-24 14:09 | disposition home or self-care (01) ==
PROVIDERS: PCP Internal Medicine; Visit Provider Surgery
DX: Z80.3 Family history of malignant neoplasm of breast (principal); Z91.89 Other specified personal risk factors, not elsewhere classified
CPT/HCPCS: 99204

== ENCOUNTER → 2024-10-24 13:25 | Outpatient (BNVA) | payer OTHER, SELFPAY | PROVIDERS: PCP Internal Medicine; Visit Provider Surgery ==

== ENCOUNTER 2024-11-05 07:33 | Outpatient (AMB) | payer OTHER, SELFPAY ==
--- NOTE | 2024-11-05 08:10 | MHC.OFFVIS ---
Intake Visit Reasons: vulva biopsy Collection Card Clerk: Collection Card Clerk Present (Patricia) Allergies Dust Allergy (Intermediate, Uncoded 10/24/24 13:41) Unknown HPI Comments Details: Presenting for left labial lesion excisional biopsy [facility] Medical History FH: breast cancer in first degree relative History of abnormal cervical Pap smear Impaired fasting glucose Hyperlipidemia Gallstones Surgical History History of breast lump/mass excision History of section Family History Mother History of breast cancer History of cervical cancer, Onset Age: 59 Ovarian cancer Father History of cancer of unknown primary site Maternal Grandmother History of breast cancer, Onset Age: 70 Social History Housing: House Alcohol intake: never Patient Tobacco Use Status: Never used Tobacco e-Cigarette/Vaping Use: Never Used service: No Current occupational status: employed Cognitive needs: No Hearing needs: No Vision needs: Yes Female Reproductive History Menstrual Age of Menarche: 15 Review of Systems Const All systems reviewed & are unremarkable except as noted in HPI and below Reports as per HPI and Reports no additional complaints GI Reports no additional complaints Reports no additional complaints Office 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 Preop dx: Left vulvar lesion Op: Left vulvar lesion excision Post op: Same Anesthesia: Lidocaine 1% 3cc used Procedure: Using betadine the area was scrubbed and draped in the usual manner. 3 cc of lidocaine was used for anesthesia at the left vulvar lesion area ; using scissors and pickup the left vulvar lesion was excised, Vicryl was used to approximate the edges. Pressure was used for hemostasis. The patient tolerated the procedure well. Discharge Instructions: The patient was instructed to schedule an appointment in 2 weeks for follow-up and to call if temp>100.4, area of the biopsy redness or pain, nausea/vomiting. This note was generated with a voice recognition program. Some errors may have been overlooked during the review of this note. Sometimes these errors may affect the content or meaning of a given sentence. 85910-Exqcmw of Vulva/Perineum Procedure code (CPT) selection complete Assessment & Plan Assessment & Plan (1) Vulvar lesion: Comment: Left labia majora 0.5 cm Code(s): N90.89 - Other specified noninflammatory disorders of vulva and perineum Category: Medical Plan: Left labia majora 0.5 lesion excision done, see procedure note Orders: Orders AMB STEWARD/STEWARDESS [employer] Biopsy Today N90.89 - Other specified noninflammatory disorders of vulva and perineum Coding Level of Care Code Procedure Only Diagnoses Vulvar lesion N90.89 CPT Codes STEWARD/STEWARDESS [employer]ILRO[employer] D[employer]ING [employer] Biopsy - CPT: 40793-Bplldw of Vulva/Perineum ([id number])
== END 2024-11-05 08:42 | disposition home or self-care (01) ==
LOC: HO.HWS 07:33
PROVIDERS: PCP Internal Medicine; Visit Provider Obstetrics & Gynecology
DX: N90.89 Other specified noninflammatory disorders of vulva and perineum (principal)
CPT/HCPCS: 56605

== ENCOUNTER 2024-11-05 07:33 | Outpatient (REF) | payer OTHER, SELFPAY | END 2024-11-05 07:34 | disposition home or self-care (01) | LOC: HO.LNP 07:33 | PROVIDERS: PCP Internal Medicine; Visit Provider Obstetrics & Gynecology | DX: N90.89 Other specified noninflammatory disorders of vulva and perineum (principal) | CPT/HCPCS: 56605; 88305; 88312 ==

== ENCOUNTER → 2024-11-07 11:27 | Outpatient (AMB) ==
--- NOTE | 2024-11-07 11:36 | A.OFFVIS_ITS ---
Vital Signs 11/07/24 11:36 Height 5 ft 2 in Weight 165 lb 5.547 oz BMI 30.2 Pulse 72 Intake Visit Reasons: genetic testing results Intake Note: Patient is seen in office for genetic testing results. Residential Support Specialist Required: No Accompanied by: Self / Same As Patient Allergies Dust Allergy (Intermediate, Uncoded 11/07/24 11:36) Unknown HPI Comments Details: 63-year-old female patient presenting with a strong family history of breast cancer to discuss genetic testing. She reports a prior history of breast lumpectomy which was benign. She denies any current breast pain, breast lumps, skin changes, nipple discharge or enlarged lymph nodes. Her family history is significant for her mother having breast cancer at the age of 59 and her maternal grandmother having history of breast cancer as well as cervical cancer/vaginal cancer and ultimately succumbed from the disease. Her menarche was at the age of 15. She is 1 para 1 and had her child when she was 21 years old. She is postmenopausal, last period at the age of 44. She denied hormone replacement. Her sister underwent genetic testing was negative. 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 This mutation places her at increased risk for uveal melanoma (25-36% risk), malignant mesothelioma (20-25% risk), cutaneous melanoma (13-17% risk), renal malignancy (5-10% risk), and basal cell skin cancers (6-10% risk). Recommendations include uveal examination and imaging yearly possibly by an ocular oncologist; screening chest and abdominal MRI every 1-2 years, with grant itation of exposure to radiation from CT imaging or x-rays, and limiting sources of UV radiation including the sun. In addition annual skin screening for melanoma and basal cell carcinoma of the skin are recommended. I recommended evaluation by a genetic counselor and have made arrangements for MRI of the chest and abdomen. A copy of the report was provided to the patient. Her breast cancer risk score was calculated at 9.4%, well below the 20% threshold. She was therefore not at high risk for breast cancer based on her clinical history. 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 [facility] Medical History Monoallelic mutation of BAP1 gene FH: breast cancer in first degree relative History of abnormal cervical Pap smear Impaired fasting glucose Hyperlipidemia Gallstones Surgical History History of breast lump/mass excision History of section Family History Mother History of breast cancer History of cervical cancer, Onset Age: 59 Ovarian cancer Father History of cancer of unknown primary site Maternal Grandmother History of breast cancer, Onset Age: 70 Social History Housing: House Alcohol intake: never Patient Tobacco Use Status: Never used Tobacco e-Cigarette/Vaping Use: Never Used service: No Current occupational status: employed Cognitive needs: No Hearing needs: No Vision needs: Yes Female Reproductive History Menstrual Age of Menarche: 15 Review of Systems Const All systems reviewed & are unremarkable except as noted in HPI and below Physical Exam Vital Signs: Last Vital Signs Pulse 72 11/07/24 11:36 BMI result Body Mass Index 30.2 Const Other: Exam deferred Assessment & Plan Assessment & Plan (1) Monoallelic mutation of BAP1 gene: Code(s): Z15.09 - Genetic susceptibility to other malignant neoplasm Category: Medical (2) Family history of breast cancer in first degree relative: Code(s): Z80.3 - Family history of malignant neoplasm of breast Category: Medical (3) At high risk for breast cancer: Code(s): Z91.89 - Other specified personal risk factors, not elsewhere classified Category: Medical Plan 63-year-old female patient returning today for review of her genetic testing which was positive for BAP1 mutation. As a result of this mutation she will be sent for genetic counseling at [facility]. I have requested chest and abdomen MRIs to screen for mesothelioma and renal tumors. We also discussed screening for her family including siblings and children. She expressed understanding and agrees with the plan. Orders: Orders MR abdomen wo/w con 11/07/24 Z15.09 - Genetic susceptibility to other malignant neoplasm MR chest w con 11/07/24 Z15.09 - Genetic susceptibility to other malignant neoplasm Referrals Genetics Referral Z15.09 - Genetic susceptibility to other malignant neoplasm, Z80.3 - Family history of malignant neoplasm of breast, Z91.89 - Other specified personal risk factors, not elsewhere classified Coding Level of Care Code Est Pt Level 3 (11837) Diagnoses Monoallelic mutation of BAP1 gene Z15.09 Family history of breast cancer in first degree relative Z80.3 At high risk for breast cancer Z91.89
== END | disposition home or self-care (01) ==
CPT/HCPCS: 99213

== ENCOUNTER 2024-11-07 12:59 | Outpatient (REF) | payer OTHER, SELFPAY ==
--- NOTE | ~2024-11-07 | MM_ITS ---
EXAMINATION: MM DIAGNOSTIC DIGITAL BREAST TOMOSYNTHESIS, LEFT Limited left ultrasound. CLINICAL INFORMATION: Call back from screening for asymmetries and questioned distortion in the left breast. Family history of breast cancer including patient's mother. Patient states she had recent genetic testing. Patient states she had previous left excisional biopsies. COMPARISON: Mammography: Comparison is made with available prior examinations. TECHNIQUE: Digital breast tomosynthesis is performed in both the craniocaudal and mediolateral oblique views along with computer-aided detection (CAD). Synthesized 2D images are generated from the tomosynthesis. Limited left breast ultrasound. FINDINGS: The breasts are heterogeneously dense, which may obscure small masses (ACR BI-RADS breast composition Category c). The previously seen asymmetries do not persist on additional imaging projections and likely represented overlapping breast tissue. The previously seen distortion in the retroareolar region of the left breast on MLO view partially effaces on additional imaging projections and with history of left breast excisional biopsies this could explain the findings. No suspicious masses calcifications or other abnormal findings. Targeted color Doppler ultrasound scanning in the left breast from 11-4 o'clock demonstrates normal fibronodular breast tissue. There are a few simple cyst at 3:00 8 cm from the nipple measuring approximately 8 mm 4 mm and 8 mm. MM/MM tomosynthesis added views L IMPRESSION: 1. Questioned left breast distortion which partially effaces which could be accounted for by previous surgical history. Recommend 6 month follow-up left breast mammography for further evaluation of stability. 2. Simple cysts in the left breast on ultrasound. Benign. ASSESSMENT: BI-RADS BI-RADS 3 - Probably benign finding(s) - 6 month follow-up suggested RECOMMENDATION: 1 year F/U (accession [id number]), 6 Month F/U (accession [id number]) Results were provided to the patient at time of visit by the technologist. This patient's information was entered into a reminder system with a target due date for their next mammogram. Electronically signed by: Ju Campo DO 11/07/2024 02:19 PM [facility] Workstation: [id number]
--- NOTE | ~2024-11-07 | US_ITS ---
EXAMINATION: MM DIAGNOSTIC DIGITAL BREAST TOMOSYNTHESIS, LEFT Limited left ultrasound. CLINICAL INFORMATION: Call back from screening for asymmetries and questioned distortion in the left breast. Family history of breast cancer including patient's mother. Patient states she had recent genetic testing. Patient states she had previous left excisional biopsies. COMPARISON: Mammography: Comparison is made with available prior examinations. TECHNIQUE: Digital breast tomosynthesis is performed in both the craniocaudal and mediolateral oblique views along with computer-aided detection (CAD). Synthesized 2D images are generated from the tomosynthesis. Limited left breast ultrasound. FINDINGS: The breasts are heterogeneously dense, which may obscure small masses (ACR BI-RADS breast composition Category c). The previously seen asymmetries do not persist on additional imaging projections and likely represented overlapping breast tissue. The previously seen distortion in the retroareolar region of the left breast on MLO view partially effaces on additional imaging projections and with history of left breast excisional biopsies this could explain the findings. No suspicious masses calcifications or other abnormal findings. Targeted color Doppler ultrasound scanning in the left breast from 11-4 o'clock demonstrates normal fibronodular breast tissue. There are a few simple cyst at 3:00 8 cm from the nipple measuring approximately 8 mm 4 mm and 8 mm. US/US breast LT limited mamm only IMPRESSION: 1. Questioned left breast distortion which partially effaces which could be accounted for by previous surgical history. Recommend 6 month follow-up left breast mammography for further evaluation of stability. 2. Simple cysts in the left breast on ultrasound. Benign. ASSESSMENT: BI-RADS BI-RADS 3 - Probably benign finding(s) - 6 month follow-up suggested RECOMMENDATION: 1 year F/U (accession [id number]), 6 Month F/U (accession [id number]) Results were provided to the patient at time of visit by the technologist. This patient's information was entered into a reminder system with a target due date for their next mammogram. Electronically signed by: Ju Campo DO 11/07/2024 02:19 PM [facility] [place]
== END 2024-11-07 13:00 | disposition home or self-care (01) ==
LOC: HO.MAMMO 12:59
PROVIDERS: PCP Internal Medicine; Visit Provider Internal Medicine
DX: N64.89 Other specified disorders of breast (principal)
CPT/HCPCS: 76642; 77061; 77065

== ENCOUNTER → 2024-11-07 13:00 | Outpatient (BNV) | payer OTHER, SELFPAY | PROVIDERS: PCP Internal Medicine; Visit Provider Internal Medicine | DX: R92.8 Other abnormal and inconclusive findings on diagnostic imaging of breast (principal) | CPT/HCPCS: 76642; 77061; 77065 ==

== ENCOUNTER → 2024-11-16 15:28 | Outpatient (BNV) | payer OTHER, SELFPAY | PROVIDERS: PCP Internal Medicine; Visit Provider Radiology Diagnostic Radiology | DX: Z15.09 Genetic susceptibility to other malignant neoplasm (principal); Z91.89 Other specified personal risk factors, not elsewhere classified | CPT/HCPCS: 71552; 74183 ==

== ENCOUNTER 2024-11-16 15:29 | Outpatient (REF) | payer OTHER, SELFPAY ==
--- NOTE | ~2024-11-16 | MR_ITS ---
EXAMINATION: MR ABDOMEN WITHOUT AND WITH CONTRAST CLINICAL INFORMATION: Genetic susceptibility to other malignant. Risk for mesothelioma, renal cancer. COMPARISON: None available. TECHNIQUE: MR abdomen was performed without and with use of 7.5 mL intravenous gadolinium based contrast without reported immediate complications. Postcontrast images are performed in multiphase dynamic sequences. Imaging was performed in 3 planes. FINDINGS: LUNG BASES: No enhancing mass in the included lungs. LIVER, GALLBLADDER, AND BILIARY TREE: Liver measures 16 cm. No focal mass. Main portal veins, hepatic veins and intrahepatic portion of the IVC are patent. The gallbladder is packed with large gallstones. No pericholecystic fluid collections or gallbladder wall thickening. Common bile duct measures 4 mm. PANCREAS: No focal mass. No main pancreatic ductal dilatation. No peripancreatic fluid collections. SPLEEN: 9 cm. No focal lesion. ADRENAL GLANDS: No nodular lesions. KIDNEYS AND URETERS: Normal enhancement pattern of the renal parenchyma. No focal mass. 5 mm fluid signal characteristic lesion at the corticomedullary junction upper pole left kidney. GASTROINTESTINAL TRACT: Abundant stool. No intestinal obstruction pattern. No ascites. Hilar hernia, small to moderate volume. ABDOMINAL WALL: Small fat-containing umbilical hernia. LYMPH NODES: No lymphadenopathy. VASCULAR: No aneurysm or dissection, abdominal aorta. OSSEOUS STRUCTURES: Multilevel thoracolumbar spinal stenosis, mild. Prominent epidural fat, L5-S1. MR/MR abdomen wo/w con IMPRESSION: No mass. No lymphadenopathy. Cholelithiasis. Small fat-containing umbilical hernia. Subcentimeter cyst, left kidney. Hiatal hernia, Small to moderate volume . Probable epidural lipomatosis, L5-S1. Electronically signed by: Allan Antoine MD 11/19/2024 10:43 AM EST
[2024-11-16] MEDS: gadobutroL 10 ML VIAL IVPUSH (16:21)
== END 2024-11-16 15:30 | disposition home or self-care (01) ==
LOC: HO.MRI 15:29
PROVIDERS: PCP Internal Medicine; Visit Provider Surgery
DX: Z91.89 Other specified personal risk factors, not elsewhere classified (principal); Z15.09 Genetic susceptibility to other malignant neoplasm
CPT/HCPCS: 71552; 74183; A9585

== ENCOUNTER 2024-11-26 09:11 | Outpatient (AMB) | payer OTHER, SELFPAY ==
--- NOTE | 2024-11-26 09:21 | MHC.OFFVIS ---
Vital Signs 11/26/24 09:22 Height 5 ft 2 in Weight 165 lb 5.547 oz BMI 30.2 Intake Visit Reasons: follow up MRI chest abd/pel 11/16/24 Intake Note: Patient is seen in office for MRI results, following genetic susceptibility to other malignant neoplasm. Pt c/o: here for results, denies concerns or changes MRI:11/20/24 Clipper Machine Operator Required: No Accompanied by: Self / Same As Patient Allergies Dust Allergy (Intermediate, Uncoded 11/26/24 09:22) Unknown HPI Comments Details: 63-year-old female patient presenting with a strong family history of breast cancer to discuss genetic testing. She reports a prior history of breast lumpectomy which was benign. She denies any current breast pain, breast lumps, skin changes, nipple discharge or enlarged lymph nodes. Her family history is significant for her mother having breast cancer at the age of 59 and her maternal grandmother having history of breast cancer as well as cervical cancer/vaginal cancer and ultimately succumbed from the disease. Her menarche was at the age of 15. She is 1 para 1 and had her child when she was 21 years old. She is postmenopausal, last period at the age of 44. She denied hormone replacement. Her sister underwent genetic testing was negative. 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 This mutation places her at increased risk for uveal melanoma (25-36% risk), malignant mesothelioma (20-25% risk), cutaneous melanoma (13-17% risk), renal malignancy (5-10% risk), and basal cell skin cancers (6-10% risk). Recommendations include uveal examination and imaging yearly possibly by an ocular oncologist; screening chest and abdominal MRI every 1-2 years, with limitation of exposure to radiation from CT imaging or x-rays, and limiting sources of UV radiation including the sun. In addition annual skin screening for melanoma and basal cell carcinoma of the skin are recommended. I recommended evaluation by a genetic counselor and made arrangements for MRI of the chest and abdomen. Both the chest and abdominal MRI were negative for lung changes or kidney changes. She has made an appointment with her level vial sealer for a routine skin check. She checked with her fleet maintenance manager regarding the uveal melanoma. Her breast cancer risk score was calculated at 9.4%, well below the 20% threshold. 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 [facility] Medical History Monoallelic mutation of BAP1 gene FH: breast cancer in first degree relative History of abnormal cervical Pap smear Impaired fasting glucose Hyperlipidemia Gallstones Surgical History History of breast lump/mass excision History of section Family History Mother History of breast cancer History of cervical cancer, Onset Age: 59 Ovarian cancer Father History of cancer of unknown primary site Maternal Grandmother History of breast cancer, Onset Age: 70 Social History Housing: House Alcohol intake: never Patient Tobacco Use Status: Never used Tobacco e-Cigarette/Vaping Use: Never Used service: No Current occupational status: employed Cognitive needs: No Hearing needs: No Vision needs: Yes Female Reproductive History Menstrual Age of Menarche: 15 Review of Systems Const All systems reviewed & are unremarkable except as noted in HPI and below Physical Exam Vital Signs: BMI result Body Mass Index 30.2 Const Other: Exam deferred Assessment & Plan Assessment & Plan (1) Family history of breast cancer in first degree relative: Code(s): Z80.3 - Family history of malignant neoplasm of breast Category: Medical (2) Monoallelic mutation of BAP1 gene: Code(s): Z15.09 - Genetic susceptibility to other malignant neoplasm Category: Medical Plan 63-year-old female patient recently identified to have a BAP 1 gene mutation. Initial screening studies have been negative and she understands that she will need to continue to screen on a regular basis for cutaneous melanomas and other skin cancers, uveal melanoma, mesothelioma, and renal cancers. She has communicated with the coordinator volunteer services at [facility] and we will be scheduling an appointment with them. I encouraged her to follow through with this appointment. Coding Level of Care Code Est Pt Level 3 (87677) Diagnoses Family history of breast cancer in first degree relative Z80.3 Monoallelic mutation of BAP1 gene Z15.09
[2024-11-26 09:22] VITALS: BMI 30.2
--- OUTSIDE RECORDS SUMMARY | 2024-11-26 10:02 | XMS_ITS ---
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 Generated for Loreni jacki/Kandace/eTransmitting on:?11/26/2024 10:01 AM EST
--- OUTSIDE RECORDS SUMMARY | 2024-11-26 10:02 | XMS_ITS ---
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 Generated for Loreni jacki/Kandace/eTransmitting on:?11/26/2024 10:01 AM EST
--- OUTSIDE RECORDS SUMMARY | 2024-11-26 10:02 | XMS_ITS ---
Author Organization [facility] Address [address] [place] [address] Care Team Providers Care Farrowing Worker Name Role Phone Carmen NESS, Clover Fox Primary Care Provider Un available Luciano Alfonso Unavailable [phone] Allergies No Known Allergies REASON FOR VISIT Foot pain Social History Tobacco Use: Social History Observation Description Date Details (start date - stop date) Never Smoker NA - NA Tobacco Use/Smoking Question Answer Notes Are you a: nonsmoker Additional Findings: Tobacco Non-User Current no n-smoker Alcohol Screen Question Answer Notes Did you have a drink containing alcohol in the p ast year? No Points 0 Interpretation Negative Tobacco use other than smoking: Question Answer Notes Are you an other tobacco user? No Problems Problem Type SNOMED Code ICD Code Onset Dates Problem Status W/U Status Risk Notes Problem Acquired hallux valgus (99606077) Hallux valgus (acquired), left foot (M20.12) Active confirmed Vital Signs Height 5 ft 2 in in 06/28/2024 Weight 155 lbs 06/28/2024 BMI 28.35 kg/m2 06/28/2024 Encounters Encounter Location Date Provider Diagnosis [facility] [address] [place] [address] 06/28/2024 Luciano Alfonso Pain in left foot M79.672 ; Pain in left ankle and joints of left foot M25.572 ; Bursitis of left foot M77.52 and Hallux valgus (acquired), left foot M20.12 Assessments Encounter Date Diagnosis (ICD Code) Assessment Notes Treatment Notes Treatment Clinical Notes Section Notes 06/28/2024 Pain in left foot (ICD-10 - M79.672) 06/28/2024 Pain in left ankle and joints of left foot (ICD-10 - M25.572) 06/28/2024 Bursitis of left foot (ICD-10 - M77.52) 06/28/2024 Hallux valgus (acquired), left foot (ICD-10 - M20.12) Plan Of Treatment Pending Test Test Name Order Date X ray : Foot, left 3V 06/28/2024 Next Appt Details Follow Up: prn, Reason: Progress Notes * Megha AMAROaDOB:1960 (63 yo F)Acc No.[id number]:06/28/2024 Progress Notes Patient:?Jeanne Amaro Provider:?Luciano Alfonso DPM :1960???Age:63 Y???Sex:Female D ate:06/28/2024 Address:[address] [place] [address] [facility] Pcp:Arlyn Greenwood Subjective: * Chief Complaints: * ???Foot pain * HPI: ???Foot Pain:?Location:?Inside, Great toe joint, LEFT.?Duration:?several months.?Course:?worse.?Aggravated:?any pressure.?Treatments:?rest/alter normal daily activity.? * ROS:?General/Constitutional:?Nausea?denies.?Vomiting?denies.?Hunger Thirst?denies.?Loss appetite?denies.?Chills?denies.?Fatigue?denies.?Fever?denies.?Night Sweats?denies.?Unexplained weight loss?denies.?Unexplained weight gain?denies.?HEENTM:?Dentures?denies.?Dizziness?denies.?Glasses/contacts?admits.?Retinopathy?de nies.?Blurred/double vision?denies.?TMJ?denies.?Discharge/drainage?denies.?Implants?denies.?Sore throat?admits.?Dental implants?denies.?Hard of hearing ?denies.?Difficulty chewing/swallowing/speaking?denies.?Nose bleeds?denies.?Sore mouth?denies.?Respiratory:?On Oxygen?denies.?Pneumonia/pleurisy?denies.?Bronchitis?denies.?Emphysema?denies.?C oughing?denies.?Cough blood?denies.?Shortness of breath?denies.?Wheezing?denies.?Cardiovascular:?Pacemaker?denies.?MVP?denies.?WPW?denies.?CHF?denies.?Heart attack?denies.?Septal defect?denies.?Rapid beat?denies.?Chest pain ?denies.?Atrial Fib.?denies.?Murmur/Palpitations?denies.?Gastrointestinal:?Hemorrhoids?denies.?Stomach/Abdominal pain?denies.?Dark blood stool?denies.?Irritable bowel ?denies.?Constipation?denies.?Diarrhea?denies.?Hematology:?Swelling?denies.?Clots?denies.?Varicose Veins?denies.?Bruising?denies.?Bleeding problem?denies.?Genitourinary:?Blood urine?denies.?Frequent/Painfu/urination/bladder control?denies.?Kidney stones?denies.?Infection (UTI)?denies.?Nephropathy?denies.?sex trans dis (STD)?denies.?Prostate?denies.?Musculoskeletal:?Hammertoes?denies.?Bunions?admits.?Back Pain?denies.?Muscle Cramps/ Resting?denies.?Muscle cramps / walking?denies.?Generalized aches and pains?denies.?Weakness?denies.?Integ.:?Carrino?denies.?Scars?admits.?Corns/calluses?denies.?Ingrown nails?admits.?Painful nails?admits.?Open Sores?denies.?Rashes?denies.?Neurologic:?Difficulty sleeping?denies.?Brain disorder?denies.?Numbness?denies.?Balance trouble?denies.?Confusion?denies.?Fainting/blackouts?denies.?Tingling?denies.?Tr emors?denies.? * Medical History:? * Surgical History:?bunionecto my 1996Tummy tuck 2020breast cyst * Hospitalization/Major Diagno stic Procedure:? * Family History:?Mother: dece ased, diagnosed with Diabetic - NIDDM, Unspecified essential hypertension, Other malignant neoplasm of unspecified site.?Father: .? * Social History:?Tobacco Use:?Tobacco Use/Smoking?Are you a:?nonsmoker ?Additional Findings: Tobacco Non-User?Current non-smoker ?Tobacco use other than smoking?Are you an other tobacco user??No ???Drugs/Alcohol:?Drugs?Have you used drugs other than those for medical reasons in the past 12 months??No ?Alcohol Screen?Did you have a drink containing alcohol in the past year??No ?Points?0 ?Interpretation?Negative ???Miscellaneous:?Caffeine: yes. ?Children: yes, 1. ?no Exercise. ?Marital status: . 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 * Medications:?None * Allergies:?N.K.D.A.yes[Aller gies Verified] Objective: * Vitals:?Ht: 5 ft 2 in, Wt:15 5, BMI:28.35, Shoe size: 7.5, Ht-cm: 157.48 cm, Wt- k.31 kg. * Examination: ???Orthopedic: ?MUSCLE STRENGTH:?5/5 all groups in a symmetrical fashion , B/L.?BUNION:? Medially prominent 1st MPJ,(+) Pain on palpation,inflammation present medially,Lateral tracking 1st MPJ incompletely reducible, LEFT.?X-Rays - IMAGING REPORT: ?Clinical Indication(s):? Evaluate Biomechanical Deformity.?Views:? 3 views of Foot, AP, LAT, MO, LEFT.?Findings:?normal bone and soft tissue density consistent for patients age and sex.?HAV:? increased First Intermetatarsal angleand Hallux Abductus angle consistent with Bunion deformity noted,hypertrophy of the dorsal and medial 1st MTH without subchondral cyst , metatarsus primus elevatus, mild, tibial sesamoid position, 4.?Fracture:?Negative fractures identified.?Neurological: ?SENSORY:?Neurological exam reveals intact sensorium, pain sensation normal, vibration sensation intact, pinprick sensation is normal in the lower extremities, Pt denies, anesthesia, burning, paresthesia, tingling, B/L.?TINEL'S COMPRESSION:? Negative, Saphenous nerve distribution.?DEEP TENDON REFLEXES:?Achilles, 2/4, B/L.?General Examination: ?GENERAL APPEARANCE:?Reveals a pleasant, alert, well-nourished, well- developed, well hydrated individual, who demonstrates proper attention to hygiene/body habitus, and is in no acute distress, Pt serves as own?historian for office visit today.?ORIENTED:?person, place, and time.?Vascular: ?DP PULSES(B):?3/4, B/L.?PT PULSES(B):?3/4, B/L.?CAPILLARY FILL TIME:?immediate, all digits, B/L.?TROPHIC CONDITION-TEXTURE/ELASTICITY/TURGOR/HAIR GROWTH(B):?normal, B/L.?TEMPERTURE GRADIENT(C):?warm to cool, proximal to distal, B/L.?PIGMENTATION:?normal, B/L.?EDEMA(C):?absent, B/L.?Dermatologic: ?SKIN FINDINGS:?Skin exam reveals normal texture, elasticity, and turgor. There are no masses. The interspaces are clear.? Assessment: * Assessment: 1.?Pain in left ankle and daisy ints of left foot - M25.572?2.?Pain in left foot - M79.672 (Primary)?3.?Bursitis of left foot - M77.52?4.?Hallux valgus (acquired), left foot - M20.12, Dx New problem, Prognosis Uncertain (4),Acute problem, Complicated w/ Multiple Tx Options(4)? Plan: * Treatment: * Procedure Codes:?86659 X-RAY EXAM OF LEFT FOOT 3V, Modifiers: 26 , LT * Preventive Medicine:? ??Counseling:?Discussion:?-04: Office or other outpatient visit for the evaluation and management of a new patient, which required a medically appropriate history and/or examination and MODERATE level of DECISION MAKING for: 1 OR MORE CHRONIC PROBLEM(S) THATS WORSENING, 2 STABLE CHRONIC PROBLEMS, A NEWLY DIAGNOSED PROBLEM WITH UNCERTAIN PROGNOSIS, AN ACUTE COMPLICATED INJURY WITH MULTIPLE TREATMENT OPTIONS, OR AN ACUTE PROBLEM WITH ACCOMPANYING SYSTEMIC SYMPTOMS, THAT POSE(S) A MODERATE RISK OF MORBIDITY. THIS CONDITION MAY ALSO INCLUDE RX DRUG MANAGEMENT, OR A DECISON FOR MINOR SURGERY. The visit on the day of the encounter encompassed interpreting the data and educating the patient as to the nature of their condition, treatment options available according to their individual PMH, meds, allergies, and overall health/living conditions, as well as any potential risks or complications that may occur from a failure to adhere to, and participate in, the recommended course of therapy. The discussion included a complete verbal, and/or written explanation of the examination results, any x-rays taken, the proposed diagnosis, and outline of the treatment plan. A schedule for future care needs was also explained. The patient verbalized an understanding of the instructions at this time and agreed to be an active participant in their treatment. If the patient should think of any questions or concerns after the visit, I have encouraged the patient to call the office.?Digital Treatment:?I explained to the patient the risks/benefits of all the different treatment options for their pain including: No treatment at all, Rest, Ice, New/supportive/wider/deeper Shoegear, Digital Padding/Strapping/Taping/Bracing/Gel protective sleeves, Foot/Ankle AFO Bracing, Stretching exercises, Deep Tissue Massage, Arch support/shoe inserts with splay metatarsal padding, and Custom orthoses. I insisted that any digital devices be removed daily and not worn overnight for safety. The patient is to carefully examine the toes daily for any skin irritation while using any splinting or padding device. The advantages and disadvantages of each option were discussed and the patients questions re: shoegear, padding, custom vs prefabricated inserts, activity level, and consistency in home treatment regimens for optimal success were answered to their verbally confirmed satisfaction.?Discussion for Bunion sx:?Several different types of Bunion surgeries were discussed with the patient, including, but not limited to: Modified Ford bone removal and soft tissue release/realignment, Maulik osteotomy with soft tissue release/realignment and internal fixation, Shaft v Base wedge osteotomies with internal fixation, and Lapidus joint fusion procedures with internal fixation. We discussed the risks of having surgery (described below) vs not having surgery (persistent pain, deformity, risk for skin ulceration/infection, loss of toe) as well as the potential surgical complications including, but not limited to: pain, swelling, bleeding, scarring, numbness, infection, delayed/non healing, floppy/unstable/shorthened toe, recurrence, failure of the procedure, overcorrection leading to plantarflexed/downward/upward positioned toe, recurrence, need for further surgery, as well as the possibility for loss of the toe itself. We discussed the use of IV/Local regional anesthesia, and the usual post-op course for healing. No guarentees were given. The patient verbally indicated a full understanding of the above conversation, and any other of their questions were answered to their satisfaction.?Orthotics:?I explained to the patient the benefits of OT use. I explained that orthoses are medically necessary to decrease the foot pain through proper mechanical control, support of their foot, cushion the forefoot by supplementing the soft tissue, possibly delay of the progression of the bunion deformity, possibly prevent surgery.?P.R.I.C.E.:?The patient was counseled on the use of P.R.I.C.E. and NSAIDS (if well tolerated) to aid in the recovery from their painful condition , Recommended Topical analgesics including Biofreeze/Aspercream/Voltaren gel.?Shoe Gear Counseling:?The patient and I reviewed the types of shoes they should be wearing. My recommendation included obtaining a well-fitted shoe with a good supportive, non-foldable nor twistable sole, plenty of toe/room for the forefoot, and proper arch support. Based on todays examination, I recommended the patient look for new shoes, by having their feet professionally measured. We discussed that generally the best time of the day for a shoe fitting is the afternoon. Different shoes types and brands to best match the patients occupation and vocation were discussed. Specific brand selection will be up to the patient, their individual foot condition/deformities, and fit. The patient and I reviewed the standard new shoe break in period by wearing them for a few hours a day while checking for redness or sores as wear time is increased. The patient verbally confirmed to understanding the information discussed.? * Follow Up:?prn * Images: * Sign off status: Completed true * Provider:?Luciano Alfonso DPM Date:?2023 Generated for Hadley echeverria/Kandace/Scout on:?11/26/2024 10:01 AM EST History and Physical Notes * HPI (History of Present Illness) Category Sub-Category Detail Notes Category Not es Foot Pain Location: Inside, Great toe joint, LEF T Duration: several months Course: worse Aggravated: any pressure Treatments: rest/alter normal da epi activity Examination Category Sub-Category Detail Notes Category Not es Neurological SENSORY: Neurological exa m reveals intact sensorium, pain sensation normal, vibration sensation intact, pinprick sensation is normal in the lower extremities, Pt denies, anesthesia, burning, paresthesia, tingling, B/L TINEL'S COMPRESSION: Negative, Saphenous nerve distribution DEEP TENDON REFLEXES: Achilles, 2/4, B/L Dermatologic SKIN FINDINGS: Skin exam reveal s normal texture, elasticity, and turgor. There are no masses. The interspaces are clear Orthopedic BUNION: Medially promine nt 1st MPJ, (+) Pain on palpation, inflammation present medially, Lateral tracking 1st MPJ incompletely reducible, LEFT MUSCLE STRENGTH: 5/5 all groups in a symmetrical fashion , B/L General Examination GENERAL APPEARANCE: Reveals a pleasant, alert, well- nourished, well-developed, well hydrated individual, who demonstrates proper attention to hygiene/body habitus, and is in no acute distress, Pt serves as own historian for office visit today ORIENTED: person, place, and t mynor Vascular DP PULSES (B): 3/4, B/L PT PULSES (B): 3/4, B/L CAPILLARY FILL TIME: immediate, all digi ts, B/L TEMPERTURE GRADIENT (C): warm to cool, p roximal to distal, B/L TROPHIC CONDITION-TEXTURE/ELASTICITY/TURGOR/HAIR GROWTH (B): normal, B/L EDEMA (C): absent, B/L PIGMENTATION: normal, B/L X-Rays - IMAGING REPORT Findings: normal b one and soft tissue density consistent for patients age and sex Fracture: Negative fractures i dentified HAV: increased First Inte rmetatarsal angleand Hallux Abductus angle consistent with Bunion deformity noted, hypertrophy of the dorsal and medial 1st MTH without subchondral cyst , metatarsus primus elevatus, mild, tibial sesamoid position, 4 Views: 3 views of Foot, AP, LAT, MO, LEFT Clinical Indication(s): Evaluate Biomech anical Deformity
--- OUTSIDE RECORDS SUMMARY | 2024-11-26 10:02 | XMS_ITS | Patient Health Record ---
Author Organization [facility] Address [address] [place] [address] Care Team Providers Care Prime Minister Name Role Phone Carmen NESS, Clover Fox Primary Care Provider Un available Luciano Alfonso Unavailable [phone] Allergies No Known Allergies Reason For Referral No Information Social History Tobacco Use: Social History Observation [...] Status Risk Notes Problem Acquired hallux valgus (06542869) Hallux valgus (acquired), left foot (M20.12) Active confirmed Vital Signs Height 5 ft 2 in in 06/28/2024 Weight 155 lbs 06/28/2024 BMI 28.35 kg/m2 06/28/2024 Encounters Encounter Location Date Provider Diagnosis [facility] [address] [place] [address] 06/28/2024 Luciano Alfonso Pain in left foot M79.672 ; Pain in left ankle and joints of left foot M25.572 ; Bursitis of left foot M77.52 and Hallux valgus (acquired), left foot M20.12 [facility] [address] [place] [address] 03/20/2024 Luciano Alfonso [facility] [address] [place] [address] 04/03/2024 Luciano Alfonso Assessments Encounter Date Diagnosis (ICD Code) Assessment Notes Treatment Notes Treatment Clinical Notes Section Notes 06/28/2024 Pain in left ankle and joints of left foot (ICD-10 - M25.572) 06/28/2024 Pain in left foot (ICD-10 - M79.672) 06/28/2024 Bursitis of left foot (ICD-10 - M77.52) 06/28/2024 Hallux valgus (acquired), left foot (ICD-10 - M20.12) Plan Of Treatment Pending Test Test Name Order Date X ray : Foot, left 3V 06/28/2024 Insurance Providers Payer Name Payer Address Payer Phone Subscriber Number Group Number Insured Name Patient Relationship to Insured Coverage Start Date Coverage End Date [employer] Benefits [address] [address] [place] [address] [id number] Jeanne Chacon Self - patient is the insured Medical (General) History Medical History History ICD Code Gallstones Surgical History Surgery Date(Month/Year) bunionectomy 1995 Tummy tuck 2019 breast cyst
== END 2024-11-26 09:35 | disposition home or self-care (01) ==
PROVIDERS: PCP Internal Medicine; Visit Provider Surgery
DX: Z80.3 Family history of malignant neoplasm of breast (principal); Z15.09 Genetic susceptibility to other malignant neoplasm
CPT/HCPCS: 99213

== ENCOUNTER 2024-11-28 07:55 | Outpatient (AMB) | payer OTHER, SELFPAY ==
--- OUTSIDE RECORDS SUMMARY | 2024-11-28 07:59 | XMS_ITS | Patient Health Record ---
Author Organization [facility] Address [address] [place] [address] Care Team Providers Care Make Up Artist Name Role Phone Carmen NESS, Clover Fox Primary Care Provider Un available Luciano Alfonso Unavailable [phone] Allergies No Known Allergies Reason For Referral [...] Status Risk Notes Problem Acquired hallux valgus (09826804) Hallux valgus (acquired), left foot (M20.12) Active confirmed Vital Signs Height 5 ft 2 in in 06/28/2024 Weight 155 lbs 06/28/2024 BMI 28.35 kg/m2 06/28/2024 Encounters Encounter Location Date Provider Diagnosis [facility] [address] [place] [address] 06/28/2024 Luciano Alfonso Pain in left foot M79.672 ; Pain in left ankle and joints of left foot M25.572 ; Bursitis of left foot M77.52 and Hallux valgus (acquired), left foot M20.12 [facility] [address] [place] [address] 03/20/2024 Luciano Alfonso [facility] [address] [place] [address] 04/03/2024 Luciano Alfonso Assessments Encounter Date Diagnosis [...] Coverage End Date Blue Benefits [address] [address] [place] [address] [id number] Jeanne Chacon Self - patient is the insured Medical (General) History Medical History History ICD Code Gallstones Surgical History Surgery Date(Month/Year) bunionectomy 1995 Tummy tuck 2019 breast cyst
--- OUTSIDE RECORDS SUMMARY | 2024-11-28 08:00 | XMS_ITS ---
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 Generated for Loreni jacki/Kandace/eTransmitting on:?11/28/2024 07:59 AM EST
--- OUTSIDE RECORDS SUMMARY | 2024-11-28 08:00 | XMS_ITS ---
Author Organization [facility] Address [address] [place] [address] Care Team Providers Care Pantomimist Name Role Phone Carmen NESS, Clover Fox Primary Care Provider Un available Luciano Alfonso Unavailable [phone] Allergies No Known Allergies REASON FOR VISIT [...] Status Risk Notes Problem Acquired hallux valgus (83037610) Hallux valgus (acquired), left foot (M20.12) Active confirmed Vital Signs Height 5 ft 2 in in 06/28/2024 Weight 155 lbs 06/28/2024 BMI 28.35 kg/m2 06/28/2024 Encounters Encounter Location Date Provider Diagnosis [facility] [address] [place] [address] 06/28/2024 Luciano Alfonso Pain in left foot [...] Notes * Megha AMAROaDOB:1960 (63 yo F)Acc No.[id number]:06/28/2024 Progress Notes Patient:?Jeanne Amaro Provider:?Luciano Alfonso DPM :1960???Age:63 Y???Sex:Female D ate:06/28/2024 Address:[address] [place] [address] [address] [facility] [facility] Pcp:Arlyn Greenwood Subjective: * Chief Complaints: * [...] Cramps/ Resting?denies.?Muscle cramps / walking?denies.?Generalized aches and pains?denies.?Weakness?denies.?Integ.:?Carrion?denies.?Scars?admits.?Corns/calluses?denies.?Ingrown nails?admits.?Painful nails?admits.?Open Sores?denies.?Rashes?denies.?Neurologic:?Difficulty sleeping?denies.?Brain disorder?denies.?Numbness?denies.?Balance trouble?denies.?Confusion?denies.?Fainting/blackouts?denies.?Tingling?denies.?Tr emors?denies.? [...] 1. ?no Exercise. ?Marital status: . 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 * Medications:?None [...] Tx Options(4)? Plan: * Treatment: * Procedure Codes:?22199 X-RAY EXAM OF LEFT FOOT 3V, Modifiers: [...] Alfonso DPM Date:?2023 Generated for Hadley echeverria/Kandace/Scout on:?11/28/2024 07:59 AM EST History and Physical Notes * [...]
--- OUTSIDE RECORDS SUMMARY | 2024-11-28 08:00 | XMS_ITS ---
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 Generated for Loreni jacki/Kandace/eTransmitting on:?11/28/2024 07:59 AM EST
[2024-11-28 08:17] VITALS: BMI 30.2
--- NOTE | 2024-11-28 08:17 | MHC.OFFVIS ---
Vital Signs 11/28/24 08:17 Height 5 ft 2 in Weight 165 lb BMI 30.2 Intake Visit Reasons: Biopsy Results Allergies Dust Allergy (Intermediate, Uncoded 11/26/24 09:22) Unknown HPI Comments Details: Presenting post vulvar biopsy for follow-up doing well with no complaints. 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: breast cancer in first degree relative History of abnormal cervical Pap smear Impaired fasting glucose Hyperlipidemia Gallstones Surgical History History of breast lump/mass excision History of section Family History Mother History of breast cancer History of cervical cancer, Onset Age: 59 Ovarian cancer Father History of cancer of unknown primary site Maternal Grandmother History of breast cancer, Onset Age: 70 Social History Housing: House Alcohol intake: never Patient Tobacco Use Status: Never used Tobacco e-Cigarette/Vaping Use: Never Used service: No Current occupational status: employed Cognitive needs: No Hearing needs: No Vision needs: Yes Female Reproductive History Menstrual Age of Menarche: 15 Physical Exam Vital Signs: BMI result Body Mass Index 30.2 External Female Exam: normal external appearance and other (Site of the excision healing well with no erythema) Assessment & Plan Assessment & Plan (1) Vulvar lesion: Comment: Left labia majora 0.5 cm Code(s): N90.89 - Other specified noninflammatory disorders of vulva and perineum Category: Medical Plan: Discussed with the patient the results of the pathology, the patient was reassured. Instructions given the patient to call back in case of recurrence of the lesion, redness, discharge or incision gapping or any other concerns. All questions answered, the patient verbalized understanding Coding Level of Care Code Est Pt Level 3 (57750) Diagnoses Vulvar lesion N90.89
== END 2024-11-28 08:25 | disposition home or self-care (01) ==
LOC: HO.HWS 07:55
PROVIDERS: PCP Internal Medicine; Visit Provider Obstetrics & Gynecology
DX: N90.89 Other specified noninflammatory disorders of vulva and perineum (principal)
CPT/HCPCS: 99213

== ENCOUNTER → 2024-11-28 07:55 | Outpatient (BNVA) | payer OTHER, SELFPAY | PROVIDERS: PCP Internal Medicine; Visit Provider Obstetrics & Gynecology ==

== ENCOUNTER 2025-04-15 07:17 | Outpatient (REF) | payer OTHER, SELFPAY ==
--- OUTSIDE RECORDS SUMMARY | 2025-04-15 07:18 | XMS_ITS | Patient Health Record ---
Author Organization [facility] Address [address] [place] [address] Care Team Providers Care Pharmacy Data Analyst Name Role Phone Carmen NESS, Clover Fox Primary Care Provider Un available Luciano Alfonso Unavailable [phone] Allergies No Known Allergies Reason For Referral [...] Status Risk Notes Problem Acquired hallux valgus (08656655) Hallux valgus (acquired), left foot (M20.12) Active confirmed Vital Signs Height 5 ft 2 in in 06/28/2024 Weight 155 lbs 06/28/2024 BMI 28.35 kg/m2 06/28/2024 Encounters Encounter Location Date Provider Diagnosis [facility] [address] [place] [address] 06/28/2024 Luciano Alfonso Pain in left foot [...] Coverage End Date Blue Benefits [address] [address] [place] [address] [id number] Jeanne Chacon Self - patient is the insured Medical (General) History Medical History History ICD Code Gallstones Surgical History Surgery Date(Month/Year) bunionectomy 1995 Tummy tuck 2019 breast cyst
[2025-04-15 07:57] LABS: Hemoglobin A1C 169.5165 umol/L; Total Hemoglobin (HGBA1C) 3594.1924 umol/L
[2025-04-15 08:52] LABS: Alanine Aminotransferase 98 U/L (0-31); Albumin Level 4.4 g/dL (3.5-5.0); Alkaline Phosphatase 81 U/L (39-117); Anion Gap 10 (12-20); Blood Urea Nitrogen 17 mg/dL (9-16); Calcium 9.5 mg/dL (8.4-10.2); Carbon Dioxide 26 mmol/L (22-29); Chloride 110 mmol/L (96-108); Cholesterol 262 mg/dL (<200); Estimated Glomerular Filt Rate > 60; HDL Cholesterol 40 mg/dL (>40); Potassium 4.2 mmol/L (3.3-5.1); Sodium 142 mmol/L (135-145); Total Protein 7.9 g/dL (6.5-8.0); Triglycerides 166 mg/dL (<150)
[2025-04-15 09:02] LABS: Aspartate Amino Transferase 55 U/L (5-31)
[2025-04-15 09:10] LABS: Folate 11.0 ng/mL (> or = 4.0); Vitamin B12 522 pg/mL (200-900)
== END 2025-04-15 07:18 | disposition home or self-care (01) ==
LOC: HO.LAB 07:17
PROVIDERS: PCP Internal Medicine; Visit Provider Internal Medicine
DX: R74.01 Elevation of levels of liver transaminase levels (principal); E78.5 Hyperlipidemia, unspecified; R73.01 Impaired fasting glucose
CPT/HCPCS: 36415; 80053; 80061; 82306; 82607; 82746; 83036; 84207

== ENCOUNTER 2025-04-16 08:48 | Outpatient (AMB) | payer OTHER, SELFPAY ==
[2025-04-16 08:56] VITALS: BP 130/80; PULSE 83; RESP 16; TEMP 36.7; O2SAT 97; BMI 30.2
--- NOTE | 2025-04-16 08:56 | A.OFFPC_ITS ---
Vital Signs 04/16/25 08:56 Height 5 ft 2 in Weight 165 lb BMI 30.2 BP 130/80 Blood Pressure Location Rt brachial Position Sitting Respiration 16 Pulse 83 Pulse Source Pulse Oximeter Temp 98.0 F Temp Source Oral Pulse Oximetry (%) 97 Oxygen Delivery Method Room Air Intake Visit Reasons: Annual PE Intake Note: Pt is here today for her PE: last mammogram 11/07/24, papsmear 09/06/24, colonoscopy 10/24/16 Allergies Dust Allergy (Intermediate, Uncoded 04/16/25 09:25) Unknown Medication List - Last Reconciled 04/16/25 by Clover Morales MD biotin mcg PO multivit with min-folic acid 200 mcg (Adult Multivitamin Gummies) tabs PO Tobacco use date assessed: 04/16/25 Dental Screening Dental Screen Date: 04/16/25 Did you have a dental visit in the last 12 months?: Yes Did you have a dental problem in the last 6 months where you did not have access to dental care?: No Was dental information given to patient?: Patient has dentist HPI Annual PE HPI Details 64-year-old lady here today for her phys ical exam. She had recent fasting labs done which showed hemoglobin A1c now at 6.5% in diabetic range , currently not on any medication diabetes latest fasting lipids showed marked elevation in LDL cholesterol and triglycerides,. Up-to-date with her screening for breast cancer, with last mammogram done 11/07/24, with a additional views done showing left breast distortion which partially effaces which could be accounted for by previous surgical history. Recommend 6 month follow-up left breast mammography for further evaluation of stability.. Simple cysts in the left breast on ultrasound. Benign. , had positive genetic testing for breast cancer Last cervical cancer screening was done 09/06/2024 which came back within normal limit, sees [facility] Last colonoscopy was done in [place] in 2016, normal per patient, repeat due again in 2026 [facility] Medical History Mixed dyslipidemia Type 2 diabetes mellitus without complication, without long-term current use of insulin Elevated liver transaminase level Monoallelic mutation of BAP1 gene FH: breast cancer in first degree relative History of abnormal cervical Pap smear Gallstones Surgical History History of breast lump/mass excision History of section Family History Mother History of breast cancer History of cervical cancer, Onset Age: 59 Ovarian cancer Father History of cancer of unknown primary site Maternal Grandmother History of breast cancer, Onset Age: 70 Social History Housing: House Alcohol intake: never Patient Tobacco Use Status: Never used Tobacco e-Cigarette/Vaping Use: Never Used service: No Current occupational status: employed Cognitive needs: No Hearing needs: No Vision needs: Yes Female Reproductive History Menstrual Age of Menarche: 15 Questionnaire PHQ-9 Over the last 2 weeks, how often have you been bothered by any of the following problems? 1. Little interest or pleasure in doing things: not at all 2. Feeling down, depressed, or hopeless: not at all 3. Trouble falling or staying asleep, or sleeping too much: several days 4. Feeling tired or having little energy: several days 5. Poor appetite or overeating: not at all 6. Feeling bad about yourself - or that you are a failure or have let yourself or your family down: not at all 7. Trouble concentrating on things, such as reading the newspaper or watching television: not at all 8. Moving or speaking so slowly that other people could have noticed. Or the opposite - being so fidgety or restless that you have been moving around a lot more than usual: not at all 9. Thoughts that you would be better off or of hurting yourself in some way: not at all Total score: 2 Depression Screening Interpretation: Negative Depression Screening Done: Yes 08923 - PHQ-9 Billing: Yes Source: Developed by Drs. Claudio Irene, Mary Melendez, Timothy Swain and colleagues, with an educational ganga from [employer]. Thrive Questionnaire Date Thrive assessed: 04/16/25 I am a: Patient What is your living situation today?: I have a steady place to live Within the past 12 months, did the food you bought not last and you didn't have the money to get more?: I choose not to answer this question Within the past 12 months, did you worry whether your food would run out before you got money to buy more?: Never true Do you have trouble paying for medicines?: No Do you have trouble getting transportation to medical appointments?: No Do you have trouble paying your heating and electricity bill?: No Do you have trouble taking care of your child, family member or friend?: No Do you have trouble with day-to-day activities such as bathing, preparing meals, shopping, managing finances, etc.?: No Are you currently unemployed and looking for a job?: No Are you interested in more education?: No Please select the resources that you would like help with: None Currently or been in a relationship where the following occur: No concerns reported THRIVE Score: 0 AUDIT C Alcohol Use Questionnaire (AUDIT-C) 1. How often do you have a drink containing alcohol?: Never Total Score: 0 Score Reviewed/Action Taken: Yes STEVEN-7 AMB Questionnaire STEVEN-7 Date STEVEN - 7 assessed: 04/16/25 Feeling nervous, anxious, or on edge: 0 = Not at all Not being able to stop or control worryin = Not at all Worrying too much about different things: 1 = Several days Trouble relaxin = Not at all Being so restless that it is hard to sit still: 0 = Not at all Becoming easily annoyed or irritable: 1 = Several days Feeling afraid as if something awful might happen: 0 = Not at all Total STEVEN-7 score (0-4 normal; 5-9 mild; 10-14 moderate; 15-21 severe): 2 Source: Developed by Drs. Claudio Irene, Mary Melendez, Timothy Swain and colleagues, with an educational ganga from [employer]. STEVEN-7 Assessment Billing STEVEN-7 Assessment Tool: STEVEN-7 Assessment 67788 Review of Systems Const Denies chills, Denies difficulty sleeping, Denies fatigue, Denies fever(s), Denies headache(s) and Denies lethargy Eyes Details: She goes to [employer], has corrective lenses but never wears them, claims that she sees well Denies change in vision ENT Denies vertigo, Denies dizziness, Denies headache(s), Denies nasal congestion, Denies nasal discharge, Denies post nasal drip and Denies sinus pain Card Denies chest pain, Denies dyspnea and Denies dyspnea on exertion Resp Denies cough, Denies dyspnea and Denies dyspnea on exertion GI Denies abdominal pain, Denies melena, Denies hematochezia, Denies change in bowel habits and Denies heartburn Denies hematuria, Denies difficulty voiding, Denies nocturia, Denies genital lesions and Denies urinary incontinence Musc Denies back pain and Denies limited range of motion Skin/Breast Details: Has been seen by Dr. Perez Denies breast skin changes, Denies breast pain, Denies breast mass, Denies lesions and Denies rash Neuro Denies vertigo, Denies dizziness, Denies headache(s), Denies focal weakness and Denies convulsions Psych Reports no additional complaints, Denies depression and Denies mood swings Endo Reports no additional complaints and Denies fatigue Pito/Lymph Reports no additional complaints Aller/Immun Reports no additional complaints Physical exam (Primary Care) Vital Signs: Last Vital Signs Temp 98.0 F 04/16/25 08:56 Pulse 83 04/16/25 08:56 Resp 16 04/16/25 08:56 BP 130/80 04/16/25 08:56 Pulse Ox 97 04/16/25 08:56 Oxygen Delivery Method Room Air 04/16/25 08:56 BMI result Body Mass Index 30.2 Tobacco/Smoking Status: Tobacco use Status Tobacco use date assessed 04/16/25 04/16/25 09:01 Patient Tobacco Use Status Never used Tobacco 04/16/25 09:01 e-Cigarette/Vaping Use Never Used 04/16/25 09:01 PHQ-9: PHQ-9 Score PHQ-9: Total score 2 04/16/25 09:13 Depression Screening Interpretation: Negative Thrive Assessment: Date of Thrive Assessment Date Thrive assessed 04/16/25 04/16/25 09:03 Currently or been in a relationship where the following occur: No concerns reported Advance Care Planning discussion: Completed/Scanned Date of discussion: 04/16/25 Who was present: Patient Forms completed: Health Care Proxy Time spent: 16-45 minutes Actual minutes spent: 2 Const General: no acute distress, alert and Physically active Nutritional Appearance: overweight Orientation/consciousness: patient oriented x3 HENMT Head: Yes normocephalic Ears: hearing grossly normal bilaterally, TM's normal bilaterally and EAC's normal General nose exam: Normal external nose present Face and sinus: Yes face symmetric Mouth: Normal oral and palatal mucosa present, tongue normal, oropharynx normal and moist mucous membranes Eyes General: appearance normal, both eyes and all related structures Neck Neck: Yes full ROM, Yes no lymphadenopathy and Yes supple Thyroid: Thyroid normal Chest Chest palpation & inspection: normal inspection of the chest Breast/axilla palpation: normal palpation of the breasts Resp Effort & Inspection: normal respiratory effort and able to speak in complete sentences Auscultation: clear to auscultation bilaterally Cardio Jugular venous distension: no JVD Rate: regular rate Rhythm: regular rhythm Heart sounds: S1 normal heart sound present and S2 normal heart sound present GI Palpation (GI): Soft to palpation, nontender, no guarding, no hernias and no masses Auscultation: normal bowel sounds General: Yes no CVA tenderness Back/Spine/Pelvis Back: no CVA tenderness and No back tenderness Cervical Spine: normal cervical lordosis and cervical ROM normal Thoracic/Lumbar Spine: thoraco-lumbar ROM normal Skin Other: Scattered hyperpigmented macules on trunk, has an appointment with Dr. Perez but they rescheduled for next year Neuro General: patient oriented x3, gait normal, tone normal, moves all extremities and no focal motor deficits Gait exam (Neuro): Normal gait present Extrem General: Yes full ROM, Yes no joint enlargement, Yes no clubbing, cyanosis or edema, Yes no calf tenderness and Yes normal gait Psych Appearance: grossly normal and well kempt Mental Status: mental status grossly normal Speech and movement: Normal speech and movement present Affect: normal affect Results Reviewed Results Reviewed: Name: Jeanne Chacon Age/Sex: 64/F : 1960 Unit#: [id number] Attend Dr: Clover Morales MD Re04/15/25 Status: DEP REF Location: [facility] Disch: SPEC : [id number] YANDY: 04/15/25 STATUS: COMP REQ : [id number] RECD: 04/15/[address]: Clover Morales MD COMP: 04/15/25 ENTERED: 04/15/25-0718 HR WILSON: ORDERED: CMP Fast, Lipid Panel, Vitamin D 25-OH Test Result Flag Reference Sodium 142 135-145 mmol/L Potassium 4.2 3.3-5.1 mmol/L CL 110 H 96-108 mmol/L CO2 26 22-29 mmol/L Gap 10 L 12-20 BUN 17 H 9-16 mg/dL Creat 0.94 0.5-1.4 mg/dL eGFR > 60 Chronic Kidney Disease: Estimated GFR < 60 mL/min/1.73m2 Severe Kidney Disease: Estimated GFR < 15 mL/min/1.73m2 FBS 133 H 60-99 mg/dL A fasting glucose of 126 mg/dl or greater on more than one occasion is considered diagnostic of diabetes. CA 9.5 8.4-10.2 mg/dL Total Bili 0.7 0.0-1.0 mg/dL AST (GOT) 55 H 5-31 U/L ALT (GPT) 98 H 0-31 U/L Protein, Total 7.9 6.5-8.0 g/dL Alb 4.4 3.5-5.0 g/dL Triglyceride 166 H <150 mg/dL Desirable Triglyceride: less than 150 mg/dL Borderline High Triglyceride 150-199 mg/dL High Triglyceride: 200-499 mg/dL Very High Triglyceride: greater than or equal to 5OO mg/dL Cholesterol 262 H <200 mg/dL Desirable Cholesterol: less than 200 mg/dL Borderline High Cholesterol: 200-239 mg/dL High Cholesterol: greater than 239 mg/dL LDL Calculated 189 H <100 mg/dL Desirable LDL: less than 100 mg/dL Near Optimal/Above Optimal LDL: 110-129 mg/dL Borderline High LDL: 130-159 mg/dL High LDL: 160-189 mg/dL Very High LDL: greater than or equal to 190 mg/dL HDL 40 L >40 mg/dL Desirable HDL: greater than 40 mg/dL Note: This HDL assay may give artificially low results in patients with liver disease. Alk Phos 81 39-117 U/L Vitamin D 25-OH 33.7 >30 ng/mL Health Based Reference Values* < 20 ng/mL Deficient 20-30 ng/mL Insufficient > 30 ng/mL Sufficient Laboratory Tests 04/15/25 07:28 Estimat Average Glucose 140 Hemoglobin A1c % 6.5 H Coding Level of Care Code Est Pt Prev Care 40-64y(48366) Diagnoses Annual visit for general adult medical examination with abnormal findings Z00.01 Type 2 diabetes mellitus without complication, without long-term current use of insulin E11.9 Mixed dyslipidemia E78.2 At high risk for breast cancer Z91.89 Monoallelic mutation of BAP1 gene Z15.09 Encounter for counseling regarding advance directives Z71.89 Additional Codes STEVEN-7 Assessment Billing - STVEEN-7 Assessment Tool: STEVEN-7 Assessment 64952 ([id number]) PHQ-9 - 86966 - PHQ-9 Billing: Yes ([id number]) Vital Signs *Quality* - Advance Care Planning discussion: Completed/Scanned ([id number]) Vital Signs *Quality* - Time spent: 16-45 minutes ([id number]) Assessment & Plan Assessment & Plan (1) Annual visit for general adult medical examination with abnormal findings: Code(s): Z00.01 - Encounter for general adult medical examination with abnormal findings Plan: Reviewed recent fasting lab results with patient. Continue with regulard dental visit every 6 months and get yearly eye exams, [facility] Take adequate calcium in diet and vitamin-D 3 at 2000 IU per cap once a day, in addition to weight-bearing exercises to help maintain good muscle tone and weight control. Instructed to do self-breast exam, and continue with yearly mammogram, declines flu vaccine, does not want to get pneumonia vaccine yet, would like to wait until she is 67. Up-to-date with her Tdap and shingles vaccine. Endoscopy screening due again in 2026 (2) Type 2 diabetes mellitus without complication, without long-term current use of insulin: Code(s): E11.9 - Type 2 diabetes mellitus without complications Category: Medical Plan: Hemoglobin A1c now is at 6.5%, will start on metformin ER 500 mg to take 1 tablet at night with supper. Reinforced importance of following recommended diet, referred to diabetes education. Reminded to get yearly diabetes eye screening, [facility]. Does not want to get flu shot, recommended to get pneumonia vaccine but patient declined, wants to wait until she is 67 together (3) Mixed dyslipidemia: Code(s): E78.2 - Mixed hyperlipidemia Category: Medical Plan: Reviewed recent fasting lipid panel with patient which showed marked elevation in triglycerides cholesterol and LDL cholesterol. Will start on rosuvastatin at 5 mg to take 1 tablet every other day initially. Reinforced importance of following a low-cholesterol diet, recheck fasting lipids again in 3 months (4) At high risk for breast cancer: Code(s): Z91.89 - Other specified personal risk factors, not elsewhere classified Category: Medical Plan: Patient followed by Dr. Mccabe, has an appointment already scheduled for her repeat diagnostic mammogram in May. (5) Monoallelic mutation of BAP1 gene: Code(s): Z15.09 - Genetic susceptibility to other malignant neoplasm Category: Medical Plan: Followed by breast surgery clinic, up-to-date with her screening mammograms (6) Encounter for counseling regarding advance directives: Code(s): Z71.89 - Other specified counseling Plan: Initiated the conversation about Advanced Directives. Advanced Directives help patients prepare for current and future decisions about their medical treatment and place of care. Discussed with patient that it is a process where a patients current condition and prognosis are reviewed, their wishes for information regarding their illness are elicited, and likely medical dilemmas are presented and options discussed. Healthcare proxy form completed today. The form can be amended as needed, reviewed yearly and make changes as needed Orders: Orders Lipid Panel 07/02/25 E11.9 - Type 2 diabetes mellitus without complications, E78.2 - Mixed hyperlipidemia, Z00.01 - Encounter for general adult medical examination with abnormal findings, Z15.09 - Genetic susceptibility to other ma lignant neoplasm, Z71.89 - Other specified counseling, Z91.89 - Other specified personal risk factors, not elsewhere classified Hemoglobin A1c 07/02/25 E11.9 - Type 2 diabetes mellitus without complications, E78.2 - Mixed hyperlipidemia, Z00.01 - Encounter for general adult medical examination with abnormal findings, Z15.09 - Genetic susceptibility to other malignant neoplasm, Z71.89 - Other specified counseling, Z91.89 - Other specified personal risk factors, not elsewhere classified Basic Metabolic Panel Fasting 07/02/25 E11.9 - Type 2 diabetes mellitus without complications, E78.2 - Mixed hyperlipidemia, Z00.01 - Encounter for general adult medical examination with abnormal findings, Z15.09 - Genetic susceptibility to other malignant neoplasm, Z71.89 - Other specified counseling, Z91.89 - Other specified personal risk factors, not elsewhere classified Aspartate Amino Transferase 07/02/25 E11.9 - Type 2 diabetes mellitus without complications, E78.2 - Mixed hyperlipidemia, Z00.01 - Encounter for general adult medical examination with abnormal findings, Z15.09 - Genetic susceptibility to other malignant neoplasm, Z71.89 - Other specified counseling, Z91.89 - Other specified personal risk factors, not elsewhere classified Microalbumin, Random (w Creat) 07/02/25 E11.9 - Type 2 diabetes mellitus without complications, E78.2 - Mixed hyperlipidemia, Z00.01 - Encounter for general adult medical examination with abnormal findings, Z15.09 - Genetic susceptibility to other malignant neoplasm, Z71.89 - Other specified counseling, Z91.89 - Other specified personal risk factors, not elsewhere classified Alanine Aminotransferase 07/02/25 E11.9 - Type 2 diabetes mellitus without complications, E78.2 - Mixed hyperlipidemia, Z00.01 - Encounter for general adult medical examination with abnormal findings, Z15.09 - Genetic susceptibility to other malignant neoplasm, Z71.89 - Other specified counseling, Z91.89 - Other specified personal risk factors, not elsewhere classified Vitamin D 25-OH Total 07/02/25 E11.9 - Type 2 diabetes mellitus without complications, E78.2 - Mixed hyperlipidemia, Z00.01 - Encounter for general adult medical examination with abnormal findings, Z15.09 - Genetic susceptibility to other malignant neoplasm, Z71.89 - Other specified counseling, Z91.89 - Other specified personal risk factors, not elsewhere classified Medications: New rosuvastatin 5 mg PO Q2D 90 tabs 2RF E78.2 - Mixed hyperlipidemia metformin ER (Glucophage XR) 500 mg PO QPM 90 tabs 1RF E11.9 - Type 2 diabetes mellitus without complications losartan 50 mg PO DAILY 90 tabs 1RF
--- OUTSIDE RECORDS SUMMARY | 2025-04-16 08:59 | XMS_ITS | Patient Health Record ---
Author Organization [facility] Address [address] [place] [address] Care Team Providers Care Mannequin Decorator Name Role Phone Carmen NESS, Clover Fox Primary Care Provider Un available Luciano Alfonso Unavailable [phone] Allergies No Known Allergies Reason For Referral [...] Status Risk Notes Problem Acquired hallux valgus ([id number]) Hallux valgus (acquired), left foot (M20.12) Active confirmed Vital Signs Height 5 ft 2 in in 06/28/2024 Weight 155 lbs 06/28/2024 BMI 28.35 kg/m2 06/28/2024 Encounters Encounter Location Date Provider Diagnosis [facility] [address] [place] [address] 06/28/2024 Luciano Alfonso Pain in left foot [...] Coverage End Date Blue Benefits [address] [address] [place] [address] [id number] Jeanne Chacon Self - patient is the insured Medical (General) History Medical History History ICD Code Gallstones Surgical History Surgery Date(Month/Year) bunionectomy 1995 Tummy tuck 2019 breast cyst
== END 2025-04-16 09:52 | disposition home or self-care (01) ==
LOC: HO.HMCC 08:49
PROVIDERS: PCP Internal Medicine; Visit Provider Internal Medicine
DX: Z00.01 Encounter for general adult medical examination with abnormal findings (principal); E11.9 Type 2 diabetes mellitus without complications; E78.2 Mixed hyperlipidemia; Z91.89 Other specified personal risk factors, not elsewhere classified; Z15.09 Genetic susceptibility to other malignant neoplasm; Z71.89 Other specified counseling; Z00.00 Encounter for general adult medical examination without abnormal findings

== ENCOUNTER → 2025-04-16 08:48 | Outpatient (BNVA) | payer OTHER, SELFPAY | PROVIDERS: PCP Internal Medicine; Visit Provider Internal Medicine | DX: Z00.01 Encounter for general adult medical examination with abnormal findings (principal); E11.9 Type 2 diabetes mellitus without complications; E78.2 Mixed hyperlipidemia; Z91.89 Other specified personal risk factors, not elsewhere classified; Z15.09 Genetic susceptibility to other malignant neoplasm; Z71.89 Other specified counseling | CPT/HCPCS: 96127 ==

== ENCOUNTER 2025-05-13 10:58 | Outpatient (REF) | payer OTHER, SELFPAY ==
--- NOTE | ~2025-05-13 | US_ITS ---
EXAMINATIONS: 1. MM DIAGNOSTIC DIGITAL BREAST TOMOSYNTHESIS, BILATERAL 2. Targeted ultrasound of the right breast CLINICAL INFORMATION: 1. This is a 6-month follow-up left retroareolar distortion on the MLO that partially effaces and could be accounted for previous surgical history. 2. Patient had a chest MRI on November 16, 2024 that describes within the inferomedial aspect of the right breast there is a 7 mm enhancing nodule . Diagnostic mammography was recommended. COMPARISON: Comparison made to multiple prior, most recent left mammogram on November 07, 2024, and most remote July 01, 2020. MRI of the chest on November 17, 2024 TECHNIQUE: Digital breast tomosynthesis is performed in the left mediolateral oblique and of right ML 90 degrees views along with computer-aided detection (CAD). Synthesized 2D images are generated from the tomosynthesis. Spot compression tomosynthesis images were also obtained. FINDINGS: BREAST COMPOSITION: The breasts are heterogeneously dense, which may obscure small masses (ACR BI-RADS breast composition Category c). RIGHT BREAST: The finding described on the previous chest MRI is incompletely evaluated on the present examination as the entire breast was not included in the [id number] and because the study was not evaluated for the purpose to evaluate the breast tissue. Within these limitations, the most likely correlate is a round mass measuring approximately 0.6 cm in size located in the inferior breast at about 6 o'clock position anterior depth; this is mammographically stable since at least 2019. No significant masses, suspicious calcifications or other abnormalities are seen. No significant interval change is noted. Targeted ultrasound of the right breast was performed at the location of the mammographic finding. The survey shows a 0.7 x 0.7 x 0.6 cm complicated cyst with hypoechoic content at 6 o'clock position at 3 cm from the nipple. No internal vascularity demonstrated with color Doppler evaluation. The finding correlates with the mammographic finding. LEFT BREAST: Previously suggested area of possible distortion in the central breast retroareolar region on the MLO view, that partially effaces with spot compression, is essentially unchanged from previous examination. US/US breast RT limited mamm only IMPRESSION: RIGHT BREAST: Probable correlate for the previously described MRI finding is a complicated cyst at 6 o'clock position 3 cm from the nipple, which is associated with a mammographic correlate that is stable since at least 2019. No significant interval change is noted on the mammographic appearance of the presumed location of MR finding. A single 6-month follow-up right breast ultrasound is recommended; if the sonographic and mammographic appearance is stable at that point, not dedicated further follow-up would be required. LEFT BREAST: Possible distortion in the central breast that partially effaces, likely accounts for the patient's history of previous local excisional biopsy. A 6-month follow-up is recommended as bilateral diagnostic mammogram expected in October 2005. ASSESSMENT: BI-RADS 3 - Probably benign finding(s) - 6 month follow-up suggested RECOMMENDATION: 6 Month F/U Results were provided to the patient at time of visit by the technologist. This patient's information was entered into a reminder system with a target due date for their next mammogram. Electronically signed by: Cleve Escalona MD 05/13/2025 12:54 PM EDT
--- OUTSIDE RECORDS SUMMARY | 2025-05-13 12:07 | XMS_ITS | Patient Health Record ---
Author Organization [facility] Address [address] [place] [address] Care Team Providers Care Clay Pigeon Setter Name Role Phone Carmen NESS, Clover Fox Primary Care Provider Un available Luciano Alfonso Unavailable [phone] Allergies No Known Allergies Reason For Referral [...] Status Risk Notes Problem Acquired hallux valgus (52149227) Hallux valgus (acquired), left foot (M20.12) Active confirmed Vital Signs Height 5 ft 2 in in 06/28/2024 Weight 155 lbs 06/28/2024 BMI 28.35 kg/m2 06/28/2024 Encounters Encounter Location Date Provider [facility] [address] [place] [address] 06/28/2024 Luciano Alfonso Pain in left foot [...] Coverage End Date Blue Benefits [address] [address] [place] [address] [id number] Jeanne Chacon Self - patient is the insured Medical (General) History Medical History History ICD Code Gallstones Surgical History Surgery Date(Month/Year) bunionectomy 1995 Tummy tuck 2019 breast cyst
== END 2025-05-13 10:59 | disposition home or self-care (01) ==
LOC: HO.MAMMO 10:58
PROVIDERS: PCP Internal Medicine; Visit Provider Internal Medicine
DX: N64.89 Other specified disorders of breast (principal); Z91.89 Other specified personal risk factors, not elsewhere classified
CPT/HCPCS: 76642; 77062; 77066

== ENCOUNTER → 2025-05-13 11:00 | Outpatient (BNV) | payer OTHER, SELFPAY | PROVIDERS: PCP Internal Medicine; Visit Provider Radiology Body Imaging | DX: N63.15 Unspecified lump in the right breast, overlapping quadrants (principal) | CPT/HCPCS: 76642; 77062; 77066 ==

== ENCOUNTER 2025-07-21 13:06 | Outpatient (AMB) | payer OTHER, SELFPAY ==
--- NOTE | 2025-07-21 13:18 | A.OFFPC_ITS ---
Vital Signs 07/21/25 13:19 Height 5 ft 2 in Weight 162 lb BMI 29.6 BP 122/80 Blood Pressure Location Lt brachial Position Sitting Respiration 16 Pulse 97 Pulse Source Pulse Oximeter Temp 98.0 F Temp Source Oral Pulse Oximetry (%) 97 Oxygen Delivery Method Room Air Intake Visit Reasons: 3 months f/up Intake Note: Pt is here today for her 3mo. f/u Allergies Dust Allergy (Intermediate, Uncoded 04/16/25 09:25) Unknown Medication List - Last Reconciled 07/21/25 by Clover Morales MD biotin mcg PO multivit with min-folic acid 200 mcg (Adult Multivitamin Gummies) tabs PO rosuvastatin 5 mg PO Q2D Tobacco use date assessed: 07/21/25 Dental Screening Dental Screen Date: 07/21/25 Did you have a dental visit in the last 12 months?: Yes Did you have a dental problem in the last 6 months where you did not have access to dental care?: No Was dental information given to patient?: Patient has dentist HPI 3 months f/up HPI Details A 64-year-old lady with history of diabetes mellitus, dyslipidemia, here today for follow-up. Patient states that she stopped taking metformin ER, instead was compliant with following recommended diet and has been exercising regularly. In fact she states that she has been on a cruise and was very strict with her diet and joint in all the exercise programs available. She did lose weight, 3 lb compared to last check. She has an appointment to see her eye doctor at [facility] later this month for her diabetes eye exam routine follow-up. Patient also states that she just started taking rosuvastatin 5 mg taken 1 tablet every other day May 10/2025. No side effects experience from taking the medication. All-in-all, patient states that she has been feeling well, no complaints at present time. Hemoglobin A1c today is at 6.3%. [facility] Medical History Mixed dyslipidemia Type 2 diabetes mellitus without complication, without long-term current use of insulin Elevated liver transaminase level Monoallelic mutation of BAP1 gene FH: breast cancer in first degree relative History of abnormal cervical Pap smear Gallstones Surgical History History of breast lump/mass excision History of section Family History Mother History of breast cancer History of cervical cancer, Onset Age: 59 Ovarian cancer Father History of cancer of unknown primary site Maternal Grandmother History of breast cancer, Onset Age: 70 Social History Housing: House Alcohol intake: never Patient Tobacco Use Status: Never used Tobacco e-Cigarette/Vaping Use: Never Used service: No Current occupational status: employed Cognitive needs: No Hearing needs: No Vision needs: Yes Female Reproductive History Menstrual Age of Menarche: 15 Questionnaire Thrive Questionnaire Date Thrive assessed: 04/16/25 I am a: Patient What is your living situation today?: I have a steady place to live Within the past 12 months, did the food you bought not last and you didn't have the money to get more?: I choose not to answer this question Within the past 12 months, did you worry whether your food would run out before you got money to buy more?: Never true Do you have trouble paying for medicines?: No Do you have trouble getting transportation to medical appointments?: No Do you have trouble paying your heating and electricity bill?: No Do you have trouble taking care of your child, family member or friend?: No Do you have trouble with day-to-day activities such as bathing, preparing meals, shopping, managing finances, etc.?: No Are you currently unemployed and looking for a job?: No Are you interested in more education?: No Please select the resources that you would like help with: None Currently or been in a relationship where the following occur: No concerns reported THRIVE Score: 0 AUDIT C Alcohol Use Questionnaire (AUDIT-C) 3. How often do you have six or more drinks on one occasion?: Never Total Score: 0 STEVEN-7 AMB Questionnaire STEVEN-7 Date STEVEN - 7 assessed: 04/16/25 Source: Developed by Drs. Claudio Irene, Mary Melendez, Timothy Swain and colleagues, with an educational ganga from [employer]. Review of Systems Const Denies difficulty sleeping, Denies fatigue, Denies fever(s), Denies headache(s) and Denies lethargy Eyes Details: Goes to [facility], for her eye exam, already has an appointment for later this month Denies change in vision ENT Denies vertigo, Denies dizziness, Denies headache(s), Denies nasal congestion, Denies nasal discharge, Denies post nasal drip and Denies sinus pain Card Denies chest pain, Denies dyspnea and Denies dyspnea on exertion Resp Denies cough, Denies dyspnea and Denies dyspnea on exertion GI Denies abdominal pain, Denies melena, Denies hematochezia, Denies change in bowel habits and Denies heartburn Denies hematuria, Denies difficulty voiding, Denies nocturia, Denies genital lesions and Denies urinary incontinence Musc Denies back pain and Denies limited range of motion Skin/Breast Details: Has been seen by Dr. Perez Denies breast skin changes, Denies breast pain, Denies breast mass, Denies lesions and Denies rash Neuro Denies vertigo, Denies dizziness, Denies headache(s), Denies focal weakness and Denies convulsions Psych Reports no additional complaints, Denies depression and Denies mood swings Endo Reports no additional complaints and Denies fatigue Pito/Lymph Reports no additional complaints Aller/Immun Reports no additional complaints Physical exam (Primary Care) Vital Signs: Last Vital Signs Temp 98.0 F 07/21/25 13:19 Pulse 97 07/21/25 13:19 Resp 16 07/21/25 13:19 BP 122/80 07/21/25 13:19 Pulse Ox 97 07/21/25 13:19 Oxygen Delivery Method Room Air 07/21/25 13:19 BMI result Body Mass Index 29.6 Tobacco/Smoking Status: Tobacco use Status Tobacco use date assessed 07/21/25 07/21/25 13:28 Patient Tobacco Use Status Never used Tobacco 07/21/25 13:18 e-Cigarette/Vaping Use Never Used 07/21/25 13:18 Thrive Assessment: Date of Thrive Assessment Date Thrive assessed 04/16/25 07/21/25 13:18 Currently or been in a relationship where the following occur: No concerns reported Const General: no acute distress and alert Nutritional Appearance: overweight Orientation/consciousness: patient oriented x3 HENMT Head: Yes normocephalic General nose exam: Normal external nose present Face and sinus: Yes face symmetric Mouth: Normal oral and palatal mucosa present and moist mucous membranes Eyes General: appearance normal, both eyes and all related structures Neck Neck: Yes full ROM, Yes no lymphadenopathy and Yes supple Thyroid: Thyroid normal Resp Effort & Inspection: normal respiratory effort and able to speak in complete sentences Auscultation: clear to auscultation bilaterally Cardio Jugular venous distension: no JVD Rate: regular rate Rhythm: regular rhythm Heart sounds: S1 normal heart sound present and S2 normal heart sound present GI Palpation (GI): Soft to palpation, nontender, no guarding and no masses Auscultation: normal bowel sounds General: Yes no CVA tenderness Back/Spine/Pelvis Back: no CVA tenderness and No back tenderness Cervical Spine: normal cervical lordosis and cervical ROM normal Thoracic/Lumbar Spine: thoraco-lumbar ROM normal Neuro General: patient oriented x3, gait normal, tone normal, moves all extremities and no focal motor deficits Gait exam (Neuro): Normal gait present Extrem General: Yes full ROM, Yes no joint enlargement, Yes no clubbing, cyanosis or edema, Yes no calf tenderness and Yes normal gait Psych Appearance: grossly normal and well kempt Mental Status: mental status grossly normal Speech and movement: Normal speech and movement present Affect: normal affect Results AMB Hemoglobin A1c AMB Hemoglobin A1c 6.3 % Last Edit by Keisha Harrison CMA on 07/21/25 13:39 Results Reviewed Results Reviewed: Laboratory Last Values Hgb A1c (Clinic) 6.3 % (4.0-6.0) H 07/21/25 13:33 Coding Level of Care Code Est Pt Level 4 (74377) Complex EM visit Add On G2211 Diagnoses Mixed dyslipidemia E78.2 Type 2 diabetes mellitus without complication, without long-term current use of insulin E11.9 Assessment & Plan Assessment & Plan (1) Mixed dyslipidemia: Code(s): E78.2 - Mixed hyperlipidemia Category: Medical Plan: Continue taking rosuvastatin 5 mg taken 1 tablet every other day. Reinforced importance of adhering to a healthy diet and getting regular exercise. Advised to get her fasting lipid panel Pravin next week (2) Type 2 diabetes mellitus without complication, without long-term current use of insulin: Code(s): E11.9 - Type 2 diabetes mellitus without complications Category: Medical Plan: Patient did not want to take metformin, has been controlling her diabetes through diet and exercise, with latest hemoglobin A1c lower than last check at 6.3%. Up-to-date with her diabetes retinopathy screening, has an appointment a gain to be seen at [facility] later this month. Declined flu vaccine on pneumococcal vaccine offered on this visit. Does not want to get any further COVID booster. Orders: Orders AMB Hemoglobin A1c Today E11.9 - Type 2 diabetes mellitus without complications
[2025-07-21 13:19] VITALS: BP 122/80; PULSE 97; RESP 16; TEMP 36.7; O2SAT 97; BMI 29.6
== END 2025-07-21 14:07 | disposition home or self-care (01) ==
LOC: HO.HMCC 13:07
PROVIDERS: PCP Internal Medicine; Visit Provider Internal Medicine
DX: E78.2 Mixed hyperlipidemia (principal); E11.9 Type 2 diabetes mellitus without complications

== ENCOUNTER → 2025-07-21 13:06 | Outpatient (BNVA) | payer OTHER, SELFPAY | PROVIDERS: PCP Internal Medicine; Visit Provider Internal Medicine | DX: E11.9 Type 2 diabetes mellitus without complications (principal); E78.2 Mixed hyperlipidemia; Z79.84 Long term (current) use of oral hypoglycemic drugs | CPT/HCPCS: 83036 ==

== ENCOUNTER 2025-09-10 07:49 | Outpatient (AMB) | payer OTHER, SELFPAY ==
[2025-09-10 07:54] VITALS: BP 122/6; BMI 29.8
--- NOTE | 2025-09-10 07:54 | MHC.OFFVIS ---
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 Badger Distiller Operator Required: No Cable Television Technician: Cable Television Technician Present Allergies Dust Allergy (Intermediate, Uncoded 09/10/25 08:02) Unknown Medication List - Last Reconciled 09/10/25 by Jewels Castellano LPN biotin mcg PO multivit with min-folic acid 200 mcg (Adult Multivitamin Gummies) tabs PO rosuvastatin 5 mg PO Q2D Is last menstrual period known: No Post menopausal: Yes Do you need a note to return to daycare/school/sports/work: No HPI Comments Details: 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 Violin Mechanic concerns: none. Currently sexually active. Denies any vaginal dryness or irritation. STI testing offered; she declined. Attempting to eat a healthy diet with calcium and vitamin D and stays active with exercise. Last pap smear; 2024, negative. Last mammogram; 2024, has 6 month for cyst. Colonoscopy is UTD. [facility] Medical History Mixed dyslipidemia Type 2 diabetes mellitus without complication, without long-term current use of insulin Elevated liver transaminase level Monoallelic mutation of BAP1 gene FH: breast cancer in first degree relative History of abnormal cervical Pap smear Gallstones Surgical History History of breast lump/mass excision History of section Family History Mother History of breast cancer History of cervical cancer, Onset Age: 59 Ovarian cancer Father History of cancer of unknown primary site Maternal Grandmother History of breast cancer, Onset Age: 70 Social History Housing: House Alcohol intake: never Patient Tobacco Use Status: Never used Tobacco e-Cigarette/Vaping Use: Never Used service: No Current occupational status: employed Cognitive needs: No Hearing needs: No Vision needs: Yes Female Reproductive History Menstrual Age of Menarche: 15 control method: none Age of menopause: 44 Total pregnancies: 1 Number of Living Children: 1 Date of last pap smear: 09/06/24 History of abnormal pap smear: Yes History of STI: No Date of Mammogram: 05/13/25 History of abnormal mammogram: Yes (watching cysts) Review of Systems Const All systems reviewed & are unremarkable except as noted in HPI and below Reports as per HPI Eyes Reports no additional complaints ENT Reports no additional complaints Card Reports no additional complaints Resp Reports no additional complaints GI Reports as per HPI and Reports no additional complaints Reports as per HPI Musc Reports no additional complaints Skin/Breast Reports as per HPI Neuro Reports no additional complaints Psych Reports no additional complaints Endo Reports no additional complaints Pito/Lymph Reports no additional complaints Aller/Immun Reports no additional complaints Physical Exam Vital Signs: Last Vital Signs BP 122/64 09/10/25 11:01 BMI result Body Mass Index 29.8 Const General: cooperative, healthy appearing, no acute distress, well developed and alert Orientation/consciousness: patient oriented x3 HEENT Head: Yes normal to inspection Eyes General: appearance normal, both eyes and all related structures Neck Neck: Yes normal visual inspection Thyroid: Thyroid normal Chest Chest palpation & inspection: normal inspection of the chest and other (no puckering, dimpling, peau de orange, retraction, discharge, masses) Breast/axilla inspection: normal inspection of the breasts Breast/axilla palpation: normal palpation of the breasts Resp Effort & Inspection: normal respiratory effort GI Inspection: Yes normal to inspection Palpation (GI): Soft to palpation Rectal Exam - Female: deferred General: Yes bladder normal to palpation External Female Exam: normal external appearance and normal appearance of the urethra Speculum Exam - Vagina: normal appearance of the vagina, normal palpation, normal vaginal discharge and vagina atrophic Speculum Exam - Cervix: normal appearance of the cervix and normal palpation Bimanual exam- vagina & uterus: normal bimanual exam, normal palpation, uterine size normal, bladder normal to palpation, normal palpation and non-tender Bimanual Exam- Adnexa, other: no masses Skin General skin exam: no rashes or lesions noted Rashes: no rashes Neuro General: patient oriented x3 Cognition (Neuro): normal cognition Extrem General: Yes normal to inspection Psych Attitude: cooperative Thought process: Normal thought process present Assessment & Plan Assessment & Plan (1) Encounter for well woman exam with routine gynecological exam: Code(s): Z01.419 - Encounter for gynecological examination (general) (routine) without abnormal findings Category: Medical Plan Discussed: Current recommendations for pap smears per ASCCP guidelines. Breast awareness, periodic self breast exams and yearly mammogram. Maintain a healthy lifestyle, well balanced diet including Calcium 1,200 mg and Vitamin D 600 IU daily, and routine exercise. Contact the office with any postmenopausal bleeding. Patient verbalizes understanding and agrees to the plan of care. She was given opportunity to ask questions and all questions were answered to the best of my ability. RTO in 1 year for annual software engineering supervisor exam. This note is constructed using voice recognition software. While every effort has been made to ensure accuracy, silviculturist errors may have been included. Coding Level of Care Code Est Pt Prev Care 40-64y(11485) Diagnoses Encounter for well woman exam with routine gynecological exam Z01.419
[2025-09-10 11:01] VITALS: BP 122/64
== END 2025-09-10 08:35 | disposition home or self-care (01) ==
LOC: HO.HWS 07:49
PROVIDERS: PCP Internal Medicine; Visit Provider Advanced Practice Midwife
DX: Z01.419 Encounter for gynecological examination (general) (routine) without abnormal findings (principal)
CPT/HCPCS: 99396; 99459